=== PATIENT | female | born 1935 | race Caucasian/White ===

== ENCOUNTER 2016-07-17 15:52 | Inpatient (IN) | payer MEDICARE ==
[~2016-07-17] VITALS: Ht 149.9 cm; Wt 45.4 kg
[~2016-07-17 15:52] MED LIST: ALBU1.25 NEB; ASPI81TA2 PO; CHOL400T11 PO; CYAN500T4 PO; Cadexomer Iodine TP; ENOX30DI SQ; Fluconazole PO; Ipratropium Bromide NEB; LACT1CAP72 PO; MERO1VIA IV; RXVAN XX; VANC1VIA GT
[2016-07-17] MEDS ORDERED: IV SET PRIMARY PUMP SET 1 EA INFUS.SET MC ONE ×2 (16:14→19:31)
[2016-07-17] MEDS ORDERED: IV NS 0.9% 1,000 ML ONE (16:14)
[2016-07-17 16:24] LABS: BASOPHILS % (AUTO) 0.5 % (0.0-2.0); DIFF TOTAL % 100 %; EOSINOPHILS # (AUTO) 0.2 /CMM (0.0-0.7); EOSINOPHILS % (AUTO) 2.2 % (0.0-6.0); HEMATOCRIT 35 % (33-45); HEMOGLOBIN 11.2 g/dL (11.5-14.8); LYMPHOCYTES # (AUTO) 1.1 /CMM (0.8-4.8); LYMPHOCYTES % (AUTO) 14.5 % (20.0-44.0); MEAN CORPUSCULAR HEMOGLOBIN 25 PG (26.0-33.0); MEAN CORPUSCULAR HGB CONC 32 g/dl (31.0-36.0); MEAN CORPUSCULAR VOLUME 79 fL (82-100); MONOCYTES # (AUTO) 0.3 /CMM (0.1-1.30); MONOCYTES % (AUTO) 3.9 % (2.0-12.0); NEUTROPHILS # (AUTO) 6.2 /CMM (1.8-8.9); NEUTROPHILS % (AUTO) 78.9 % (43.0-81.0); PLATELET COUNT (AUTO) 415 /CMM (150-450); RED BLOOD CELL COUNT(AUTO) 4.46 MIL/uL (4.0-5.2); WHITE BLOOD COUNT (AUTO) 7.9 K/uL (4.3-11.0)
[2016-07-17] MEDS ORDERED: IV NS 0.9% 1,000 ML BAG IV ONE (16:30)
[2016-07-17 16:36] LABS: CALCIUM, SERUM 9.1 mg/dL (8.5-10.1); CREATININE 0.6 mg/dL (0.6-1.3); POTASSIUM 3.6 mmol/L (3.5-5.1)
[2016-07-17 16:42] LABS: ALBUMIN 2.8 g/dL (3.4-5.0); BILIRUBIN,DIRECT 0.1 mg/dL (0.0-0.2); BILIRUBIN,TOTAL 0.4 mg/dL (0.2-1.0); INDIRECT BILIRUBIN 0.3 mg/dL (0.0-1.1); TOTAL PROTEIN, SERUM 7.1 g/dL (6.4-8.2)
[2016-07-17 16:47] LABS: INR 1.1 (0.87-1.13); PROTHROMBIN TIME 11.5 SECS (9.5-12.7)
[2016-07-17] MEDS ORDERED: AMIN30LI2 PO (17:01)
[2016-07-17] MEDS ORDERED: IPRA0.2S49 NEB (17:01)
[2016-07-17] MEDS ORDERED: ALBU1.257 NEB (17:01)
[2016-07-17] MEDS ORDERED: L.AC460C PO (17:01)
[2016-07-17] MEDS ORDERED: CHOL100062 PO (17:01)
[2016-07-17] MEDS ORDERED: CYAN500T4 PO (17:01)
[2016-07-17 17:13] LABS: ADD UA MICROSCOPIC YES; KETONES,URINE Trace (NEGATIVE); LEUKOCYTE ESTERASE ,URINE Small (NEGATIVE)
[2016-07-17 17:48] LABS: ADD URINE CULTURE YES; WBC,URINE 21-50 /HPF (0-3)
[2016-07-17 19:00] VITALS: BP 147/79
[2016-07-17] MEDS ORDERED: ACETAMINOPHEN 325 MG TABLET PO PRN (19:00)
[2016-07-17] MEDS ORDERED: HYDROCODONE/APAP 5/325MG 1 EACH TABLET PO PRN (19:00)
[2016-07-17] MEDS ORDERED: MAG HYDROX/AL HYDROX/SIMETH 30 ML UDC PO PRN (19:00)
[2016-07-17] MEDS ORDERED: MAGNESIUM HYDROXIDE 30 ML UDC PO PRN (19:00)
[2016-07-17] MEDS ORDERED: ONDANSETRON HCL/PF 4 MG/2 ML VIAL IVP PRN (19:00)
[2016-07-17] MEDS ORDERED: Z GUARD REMEDY 2 OZ OINT TP PRN (19:00)
[2016-07-17] MEDS ORDERED: ZOLPIDEM TARTRATE 5 MG TABLET PO PRN (19:00)
[2016-07-17] MEDS: ALBUTEROL HALF STRENGTH 1.25 MG/3 ML VIAL.NEB NEB SCH (19:30)
[2016-07-17] MEDS ORDERED: SECONDARY IV SET 1 EA INFUS.SET MC ONE (19:31)
[2016-07-17 20:00] VITALS: BP 147/79
[2016-07-17] MEDS: IV NS 0.9% 1,000 ML IV PRN (20:06)
[2016-07-17] MEDS: ACIDOPHILUS/BULGARICUS 1 EACH TAB.CHEW PO SCH ×2 (20:06→20:11)
[2016-07-17] MEDS: ENOXAPARIN SODIUM 30 MG/0.3 ML DISP.SYRIN SQ SCH (20:07)
[2016-07-17] MEDS: CEFTRIAXONE 1 G in IV D5W 50 ML IV SCH (20:27)
[2016-07-18] MEDS: ALBUTEROL HALF STRENGTH 1.25 MG/3 ML VIAL.NEB NEB SCH ×4 (01:30→19:30)
[2016-07-18] MEDS: PANTOPRAZOLE 40 MG TABLET.DR PO SCH (07:30)
[2016-07-18] MEDS: IPRATROPIUM NEB FS 0.5 MG/2.5 ML AMPUL.NEB NEB PRN (07:58)
[2016-07-18 08:00] VITALS: BP 165/94
[2016-07-18] MEDS: CHOLECALCIFEROL 1,000 UNIT TABLET (VIT D3) PO SCH (09:00)
[2016-07-18] MEDS: CYANOCOBALAMIN 500 MCG TABLET PO SCH (09:00)
[2016-07-18] MEDS: PROSOURCE / PROSTAT (PYXIS) 30 ML UDC PO SCH ×3 (09:00→16:25)
[2016-07-18] MEDS: IV NS 0.9% 1,000 ML IV PRN (12:59)
[2016-07-18 15:52] VITALS: BP 134/66
[2016-07-18 16:00] VITALS: BP 134/66
[2016-07-18] MEDS: ACIDOPHILUS/BULGARICUS 1 EACH TAB.CHEW PO SCH (16:25)
[2016-07-18 20:00] VITALS: BP 150/70
[2016-07-18] MEDS: CEFTRIAXONE 1 G in IV D5W 50 ML IV SCH (20:28)
[2016-07-18] MEDS: ENOXAPARIN SODIUM 30 MG/0.3 ML DISP.SYRIN SQ SCH (21:00)
[2016-07-19] MEDS: ALBUTEROL HALF STRENGTH 1.25 MG/3 ML VIAL.NEB NEB SCH ×3 (01:30→19:30)
[2016-07-19] MEDS: PANTOPRAZOLE 40 MG TABLET.DR PO SCH (07:30)
[2016-07-19 08:00] VITALS: BP 179/94
[2016-07-19] MEDS: ACIDOPHILUS/BULGARICUS 1 EACH TAB.CHEW PO SCH ×2 (09:00→17:00)
[2016-07-19] MEDS: CYANOCOBALAMIN 500 MCG TABLET PO SCH (09:00)
[2016-07-19] MEDS: CHOLECALCIFEROL 1,000 UNIT TABLET (VIT D3) PO SCH (09:00)
[2016-07-19] MEDS: PROSOURCE / PROSTAT (PYXIS) 30 ML UDC PO SCH ×3 (09:00→17:00)
[2016-07-19 16:00] VITALS: BP 160/92
[2016-07-19] MEDS ORDERED: IV NS 0.9% 1,000 ML IV PRN (16:44)
[2016-07-19 20:00] VITALS: BP 153/68
[2016-07-19] MEDS: CEFTRIAXONE 1 G in IV D5W 50 ML IV SCH (20:19)
[2016-07-19] MEDS: ENOXAPARIN SODIUM 30 MG/0.3 ML DISP.SYRIN SQ SCH (21:00)
[2016-07-20] MEDS: ALBUTEROL HALF STRENGTH 1.25 MG/3 ML VIAL.NEB NEB SCH ×5 (01:30→20:40)
[2016-07-20] MEDS: PANTOPRAZOLE 40 MG TABLET.DR PO SCH (07:30)
[2016-07-20 08:00] VITALS: BP 148/88
[2016-07-20] MEDS: CHOLECALCIFEROL 1,000 UNIT TABLET (VIT D3) PO SCH (09:00)
[2016-07-20] MEDS: PROSOURCE / PROSTAT (PYXIS) 30 ML UDC PO SCH ×3 (09:00→17:00)
[2016-07-20] MEDS: ACIDOPHILUS/BULGARICUS 1 EACH TAB.CHEW PO SCH ×2 (09:00→17:00)
[2016-07-20] MEDS: CYANOCOBALAMIN 500 MCG TABLET PO SCH (09:00)
[2016-07-20 16:00] VITALS: BP 150/89
[2016-07-20 18:00] VITALS: BP 150/89
[2016-07-20 20:00] VITALS: BP 141/69
[2016-07-20] MEDS: CEFTRIAXONE 1 G in IV D5W 50 ML IV SCH (20:00)
[2016-07-20] MEDS: ENOXAPARIN SODIUM 30 MG/0.3 ML DISP.SYRIN SQ SCH (21:00)
[2016-07-21] MEDS: PANTOPRAZOLE 40 MG TABLET.DR PO SCH (07:30)
[2016-07-21 08:00] VITALS: BP 157/67
[2016-07-21] MEDS: ALBUTEROL HALF STRENGTH 1.25 MG/3 ML VIAL.NEB NEB SCH (08:00)
[2016-07-21] MEDS: IPRATROPIUM NEB FS 0.5 MG/2.5 ML AMPUL.NEB NEB PRN (08:00)
[2016-07-21 08:12] VITALS: BP 157/97
[2016-07-21] MEDS: ACIDOPHILUS/BULGARICUS 1 EACH TAB.CHEW PO SCH (08:53)
[2016-07-21] MEDS: CHOLECALCIFEROL 1,000 UNIT TABLET (VIT D3) PO SCH (08:54)
[2016-07-21] MEDS: CYANOCOBALAMIN 500 MCG TABLET PO SCH (08:54)
[2016-07-21] MEDS: PROSOURCE / PROSTAT (PYXIS) 30 ML UDC PO SCH ×2 (08:54→12:30)
[2016-07-21] MEDS ORDERED: CEFT1FRO2 IV (11:38)
[2016-07-21 13:54] VITALS: BP 157/67
== END 2016-07-21 14:11 | DRG 602 ==
LOC: ER 15:54 → TELE 17:57 → MED 20:47
PROVIDERS: ADMIT Internal Medicine; ATTEND Internal Medicine
DX: L03.115 Cellulitis of right lower limb (principal); E43 Unspecified severe protein-calorie malnutrition; G92 Toxic encephalopathy; N39.0 Urinary tract infection, site not specified; F20.0 Paranoid schizophrenia; L97.919 Non-pressure chronic ulcer of unspecified part of right lower leg with unspecified severity; L97.929 Non-pressure chronic ulcer of unspecified part of left lower leg with unspecified severity; L03.116 Cellulitis of left lower limb; I10 Essential (primary) hypertension; R62.7 Adult failure to thrive; J44.9 Chronic obstructive pulmonary disease, unspecified; F03.90 Unspecified dementia, unspecified severity, without behavioral disturbance, psychotic disturbance, mood disturbance, and anxiety; I87.8 Other specified disorders of veins; L89.152 Pressure ulcer of sacral region, stage 2; K21.9 Gastro-esophageal reflux disease without esophagitis; F32.9 Major depressive disorder, single episode, unspecified; E88.09 Other disorders of plasma-protein metabolism, not elsewhere classified; M62.50 Muscle wasting and atrophy, not elsewhere classified, unspecified site; D63.8 Anemia in other chronic diseases classified elsewhere; E53.8 Deficiency of other specified B group vitamins; I35.0 Nonrheumatic aortic (valve) stenosis; I27.2 Other secondary pulmonary hypertension; C44.91 Basal cell carcinoma of skin, unspecified; I83.029 Varicose veins of left lower extremity with ulcer of unspecified site; I83.019 Varicose veins of right lower extremity with ulcer of unspecified site
CPT/HCPCS: 36415; 80048-TC; 80076-TC; 81000-TC; 83605-TC; 83690-TC; 85025-TC; 85730-TC; 87040-TC; 87081-TC; 87086-TC; 92521; 94799-TC; 97001-TC; 97003-TC; 97110-TC; 97116-TC; 97530-TC; A4606; A6253; A6403; J0696; J1650; J7030; J7060; Z7610

== ENCOUNTER 2016-07-23 20:19 | Inpatient (IN) | payer MEDICARE, OTHER ==
[~2016-07-23] VITALS: Ht 144.8 cm; Wt 54.0 kg
[~2016-07-23 20:19] MED LIST changes: -ALBU1.25 NEB; +ALBU1.257 NEB; +AMIN30LI2 PO; -ASPI81TA2 PO; +CEFT1FRO2 IV; +CHOL100062 PO; -CHOL400T11 PO; -Cadexomer Iodine TP; -ENOX30DI SQ; -Fluconazole PO; +IPRA0.2S49 NEB; -Ipratropium Bromide NEB; +L.AC460C PO; -LACT1CAP72 PO; -MERO1VIA IV; -RXVAN XX; -VANC1VIA GT
[2016-07-23 20:46] LABS: BASOPHILS # (AUTO) 0.2 /CMM (0.0-0.2); BASOPHILS % (AUTO) 2.8 % (0.0-2.0); DIFF TOTAL % 100 %; EOSINOPHILS # (AUTO) 0.2 /CMM (0.0-0.7); EOSINOPHILS % (AUTO) 2.8 % (0.0-6.0); HEMATOCRIT 30 % (33-45); HEMOGLOBIN 10.1 g/dL (11.5-14.8); LYMPHOCYTES % (AUTO) 12.1 % (20.0-44.0); MEAN CORPUSCULAR HEMOGLOBIN 26 PG (26.0-33.0); MEAN CORPUSCULAR HGB CONC 33 g/dl (31.0-36.0); MEAN CORPUSCULAR VOLUME 79 fL (82-100); MONOCYTES # (AUTO) 0.4 /CMM (0.1-1.30); MONOCYTES % (AUTO) 4.5 % (2.0-12.0); NEUTROPHILS # (AUTO) 6.3 /CMM (1.8-8.9); NEUTROPHILS % (AUTO) 77.8 % (43.0-81.0); PLATELET COUNT (AUTO) 480 /CMM (150-450); RED BLOOD CELL COUNT(AUTO) 3.83 MIL/uL (4.0-5.2); WHITE BLOOD COUNT (AUTO) 8.1 K/uL (4.3-11.0)
[2016-07-23 20:57] LABS: ANION GAP 10 (5-14); CALCIUM, SERUM 8.7 mg/dL (8.5-10.1); CARBON DIOXIDE 32 mmol/L (21-32); CHLORIDE 104 mmol/L (98-107); CREATININE 0.7 mg/dL (0.6-1.3); GLUCOSE 89 mg/dL (74-106); POTASSIUM 3.9 mmol/L (3.5-5.1); SODIUM SERUM 142 mmol/L (136-145); UREA NITROGEN, BLOOD 20 mg/dL (7-18)
[2016-07-23 21:05] LABS: ALANINE AMINOTRANSFERASE 10 U/L (12-78); ALBUMIN 2.8 g/dL (3.4-5.0); ASPARTATE AMINOTRANSFERASE 13 U/L (15-37); BILIRUBIN,DIRECT 0.1 mg/dL (0.0-0.2); BILIRUBIN,TOTAL 0.2 mg/dL (0.2-1.0); INDIRECT BILIRUBIN 0.1 mg/dL (0.0-1.1); TOTAL PROTEIN, SERUM 6.8 g/dL (6.4-8.2)
[2016-07-23 21:11] LABS: KETONES,URINE Trace (NEGATIVE); LEUKOCYTE ESTERASE ,URINE Trace (NEGATIVE)
[2016-07-23 21:20] LABS: ADD UA MICROSCOPIC YES
[2016-07-23 21:22] LABS: CANNABINOID, URINE NEGATIVE (NEGATIVE); PHENCYCLIDINE SCREEN,URINE NEGATIVE (NEGATIVE)
[2016-07-23 21:25] LABS: ACETAMINOPHEN 0 ug/ml (10-30); SALICYLATE 1.5 mg/dL (2.8-20.0)
[2016-07-23 21:38] LABS: ADD URINE CULTURE YES; MUCUS,URINE Few /LPF (None Seen); RBC,URINE 2-4/HPF /HPF (0-2)
[2016-07-23] MEDS ORDERED: ASPI-605 PO (21:43)
[2016-07-23] MEDS ORDERED: ASCO500T9 PO (21:43)
[2016-07-23] MEDS ORDERED: TYL2T PO (21:45)
[2016-07-23] MEDS ORDERED: MULT1TAB11 PO (21:45)
[2016-07-24] MEDS ORDERED: TEMAZEPAM 7.5 MG CAPSULE PO PRN
[2016-07-24] MEDS ORDERED: MAGNESIUM HYDROXIDE 30 ML UDC PO PRN
[2016-07-24] MEDS ORDERED: MAG HYDROX/AL HYDROX/SIMETH 30 ML UDC PO PRN
[2016-07-24] MEDS ORDERED: clonazePAM 0.5 MG TABLET PO PRN
[2016-07-24] MEDS ORDERED: ACETAMINOPHEN 325 MG TABLET PO PRN
[2016-07-24 01:00] VITALS: BP 146/89
[2016-07-24 08:00] VITALS: BP 146/94
[2016-07-24] MEDS ORDERED: ASPIRIN EC 81 MG TABLET.DR PO SCH (09:00)
[2016-07-24] MEDS: ASCORBIC ACID 500 MG TABLET PO SCH ×2 (09:00→09:24)
[2016-07-24] MEDS: CIPROFLOXACIN HCL 250 MG TABLET PO SCH ×3 (09:24→22:20)
[2016-07-24] MEDS ORDERED: Z GUARD REMEDY 2 OZ OINT TP PRN (11:30)
[2016-07-24] MEDS: Z GUARD REMEDY 2 OZ OINT TP SCH ×2 (13:31→17:44)
[2016-07-24] MEDS: HYDROGEL DRESSING 90 GM TUBE TP SCH (14:19)
[2016-07-24] MEDS: UREA 10% -AHA 4% CREAM 57 GM TUBE TP SCH ×3 (14:19→22:22)
[2016-07-24 16:00] VITALS: BP 143/85
[2016-07-24] MEDS: QUETIAPINE FUMARATE 25 MG TABLET PO SCH ×2 (17:00→17:44)
[2016-07-24 20:05] VITALS: BP 138/90
[2016-07-24] MEDS: MIRTAZAPINE 15 MG TABLET PO SCH ×2 (22:00→22:20)
[2016-07-25] MEDS: Z GUARD REMEDY 2 OZ OINT TP SCH ×2 (05:58→18:23)
[2016-07-25 08:00] VITALS: BP 144/74
[2016-07-25] MEDS: CIPROFLOXACIN HCL 250 MG TABLET PO SCH ×2 (09:00→21:00)
[2016-07-25] MEDS: QUETIAPINE FUMARATE 25 MG TABLET PO SCH ×2 (09:00→17:00)
[2016-07-25] MEDS: ASCORBIC ACID 500 MG TABLET PO SCH (09:00)
[2016-07-25] MEDS: UREA 10% -AHA 4% CREAM 57 GM TUBE TP SCH ×2 (11:56→21:35)
[2016-07-25] MEDS: HYDROGEL DRESSING 90 GM TUBE TP SCH (11:56)
[2016-07-25 16:04] VITALS: BP 142/76
[2016-07-25 20:05] VITALS: BP 125/69
[2016-07-25] MEDS: MIRTAZAPINE 15 MG TABLET PO SCH (21:35)
[2016-07-26] MEDS: Z GUARD REMEDY 2 OZ OINT TP SCH ×2 (05:47→17:52)
[2016-07-26 08:57] VITALS: BP 145/89
[2016-07-26] MEDS: QUETIAPINE FUMARATE 25 MG TABLET PO SCH ×2 (09:00→17:00)
[2016-07-26] MEDS: CIPROFLOXACIN HCL 250 MG TABLET PO SCH ×2 (09:00→20:45)
[2016-07-26] MEDS: ASCORBIC ACID 500 MG TABLET PO SCH (09:00)
[2016-07-26] MEDS: UREA 10% -AHA 4% CREAM 57 GM TUBE TP SCH ×2 (15:26→20:50)
[2016-07-26] MEDS: HYDROGEL DRESSING 90 GM TUBE TP SCH (15:27)
[2016-07-26 16:00] VITALS: BP 134/66
[2016-07-26 20:00] VITALS: BP 146/89
[2016-07-26] MEDS: MIRTAZAPINE 15 MG TABLET PO SCH (21:00)
[2016-07-27] MEDS: Z GUARD REMEDY 2 OZ OINT TP SCH ×2 (06:02→17:02)
[2016-07-27 08:00] VITALS: BP 121/85
[2016-07-27] MEDS: QUETIAPINE FUMARATE 25 MG TABLET PO SCH ×2 (08:55→16:47)
[2016-07-27] MEDS: ASCORBIC ACID 500 MG TABLET PO SCH (08:55)
[2016-07-27] MEDS: CIPROFLOXACIN HCL 250 MG TABLET PO SCH ×2 (08:55→21:00)
[2016-07-27] MEDS: UREA 10% -AHA 4% CREAM 57 GM TUBE TP SCH ×2 (08:55→21:00)
[2016-07-27] MEDS: HYDROGEL DRESSING 90 GM TUBE TP SCH (08:56)
[2016-07-27 16:00] VITALS: BP 147/79
[2016-07-27 20:00] VITALS: BP 139/80
[2016-07-27] MEDS: MIRTAZAPINE 15 MG TABLET PO SCH (21:31)
[2016-07-28] MEDS: Z GUARD REMEDY 2 OZ OINT TP SCH ×2 (06:00→17:11)
[2016-07-28 08:00] VITALS: BP 142/87
[2016-07-28] MEDS: CIPROFLOXACIN HCL 250 MG TABLET PO SCH ×2 (08:33→21:00)
[2016-07-28] MEDS: QUETIAPINE FUMARATE 25 MG TABLET PO SCH ×2 (08:34→16:58)
[2016-07-28] MEDS: ASCORBIC ACID 500 MG TABLET PO SCH (08:35)
[2016-07-28] MEDS: UREA 10% -AHA 4% CREAM 57 GM TUBE TP SCH ×2 (08:35→21:00)
[2016-07-28] MEDS: HYDROGEL DRESSING 90 GM TUBE TP SCH (08:35)
[2016-07-28 16:07] VITALS: BP 130/89
[2016-07-28 20:00] VITALS: BP 134/90
[2016-07-28] MEDS: MIRTAZAPINE 15 MG TABLET PO SCH (22:00)
[2016-07-29] MEDS: Z GUARD REMEDY 2 OZ OINT TP SCH ×2 (06:09→18:15)
[2016-07-29 08:00] VITALS: BP 146/98
[2016-07-29] MEDS: ASCORBIC ACID 500 MG TABLET PO SCH (08:27)
[2016-07-29] MEDS: CIPROFLOXACIN HCL 250 MG TABLET PO SCH ×2 (08:27→21:00)
[2016-07-29] MEDS: QUETIAPINE FUMARATE 25 MG TABLET PO SCH ×2 (08:27→17:00)
[2016-07-29] MEDS: HYDROGEL DRESSING 90 GM TUBE TP SCH (09:00)
[2016-07-29] MEDS: UREA 10% -AHA 4% CREAM 57 GM TUBE TP SCH ×2 (09:00→21:59)
[2016-07-29 16:00] VITALS: BP 139/72
[2016-07-29 19:57] VITALS: BP 152/108
[2016-07-29] MEDS ORDERED: VALSARTAN 80 MG TABLET ONE (19:58)
[2016-07-29] MEDS ORDERED: VALSARTAN 80 MG TABLET PO ONE (20:00)
[2016-07-29 20:25] VITALS: BP 117/75
[2016-07-29] MEDS: MIRTAZAPINE 15 MG TABLET PO SCH (21:58)
[2016-07-30] MEDS: Z GUARD REMEDY 2 OZ OINT TP SCH ×2 (06:00→18:12)
[2016-07-30 08:00] VITALS: BP 126/73
[2016-07-30] MEDS: VALSARTAN 80 MG TABLET PO SCH (09:00)
[2016-07-30] MEDS: ASCORBIC ACID 500 MG TABLET PO SCH (09:00)
[2016-07-30] MEDS: HYDROGEL DRESSING 90 GM TUBE TP SCH (09:00)
[2016-07-30] MEDS: UREA 10% -AHA 4% CREAM 57 GM TUBE TP SCH ×2 (09:00→21:00)
[2016-07-30] MEDS: QUETIAPINE FUMARATE 25 MG TABLET PO SCH ×2 (09:00→17:00)
[2016-07-30] MEDS: CIPROFLOXACIN HCL 250 MG TABLET PO SCH ×2 (09:00→21:00)
[2016-07-30] MEDS ORDERED: HALOPERIDOL LACTATE INJ 5 MG/ML VIAL IM SCH (14:30)
[2016-07-30 16:00] VITALS: BP 108/51
[2016-07-30] MEDS: HALOPERIDOL LACTATE INJ 5 MG/ML VIAL IM SCH (18:09)
[2016-07-30 20:25] VITALS: BP 112/51
[2016-07-30] MEDS: MIRTAZAPINE 15 MG TABLET PO SCH (21:52)
[2016-07-31] MEDS: Z GUARD REMEDY 2 OZ OINT TP SCH ×2 (06:27→18:00)
[2016-07-31 08:00] VITALS: BP 117/61
[2016-07-31] MEDS: ASCORBIC ACID 500 MG TABLET PO SCH ×2 (09:00→10:04)
[2016-07-31] MEDS: CIPROFLOXACIN HCL 250 MG TABLET PO SCH ×3 (09:00→21:00)
[2016-07-31] MEDS: QUETIAPINE FUMARATE 25 MG TABLET PO SCH ×4 (09:00→17:44)
[2016-07-31] MEDS: UREA 10% -AHA 4% CREAM 57 GM TUBE TP SCH ×3 (09:00→21:36)
[2016-07-31] MEDS: VALSARTAN 80 MG TABLET PO SCH (09:00)
[2016-07-31] MEDS ORDERED: HALOPERIDOL LACTATE INJ 5 MG/ML VIAL IM SCH (09:00)
[2016-07-31] MEDS: HYDROGEL DRESSING 90 GM TUBE TP SCH (10:08)
[2016-07-31] MEDS: HALOPERIDOL LACTATE INJ 5 MG/ML VIAL IM SCH ×2 (10:27→17:57)
[2016-07-31 16:00] VITALS: BP 125/66
[2016-07-31 19:50] VITALS: BP 129/51
[2016-07-31] MEDS: MIRTAZAPINE 15 MG TABLET PO SCH (21:36)
[2016-08-01 02:59] LABS: BASOPHILS % (AUTO) 0.1 % (0.0-2.0); DIFF TOTAL % 100 %; HEMATOCRIT 27 % (33-45); LYMPHOCYTES # (AUTO) 0.3 /CMM (0.8-4.8); LYMPHOCYTES % (AUTO) 2.3 % (20.0-44.0); MEAN CORPUSCULAR HEMOGLOBIN 26 PG (26.0-33.0); MEAN CORPUSCULAR HGB CONC 33 g/dl (31.0-36.0); MEAN CORPUSCULAR VOLUME 77 fL (82-100); MONOCYTES # (AUTO) 0.7 /CMM (0.1-1.30); MONOCYTES % (AUTO) 4.9 % (2.0-12.0); NEUTROPHILS % (AUTO) 92.7 % (43.0-81.0); PLATELET COUNT (AUTO) 278 /CMM (150-450)
[2016-08-01 03:08] LABS: CALCIUM, SERUM 8.2 mg/dL (8.5-10.1); PHOSPHORUS 2.6 mg/dL (2.5-4.9); POTASSIUM 3.6 mmol/L (3.5-5.1)
[2016-08-01 03:22] LABS: TROPONIN I 0.037 ng/mL (0.00-0.056)
== END 2016-08-01 03:03 | disposition short-term general hospital (02) | DRG 885 ==
LOC: ER 20:24 → GPS 23:10
PROVIDERS: ADMIT Psychiatry & Neurology Psychiatry; ATTEND Internal Medicine
DX: F33.3 Major depressive disorder, recurrent, severe with psychotic symptoms (principal); G93.41 Metabolic encephalopathy; E44.0 Moderate protein-calorie malnutrition; L03.115 Cellulitis of right lower limb; L03.116 Cellulitis of left lower limb; N39.0 Urinary tract infection, site not specified; F03.90 Unspecified dementia, unspecified severity, without behavioral disturbance, psychotic disturbance, mood disturbance, and anxiety; D63.8 Anemia in other chronic diseases classified elsewhere; E78.5 Hyperlipidemia, unspecified; I25.10 Atherosclerotic heart disease of native coronary artery without angina pectoris; K21.9 Gastro-esophageal reflux disease without esophagitis; D50.9 Iron deficiency anemia, unspecified; Z73.6 Limitation of activities due to disability; J44.9 Chronic obstructive pulmonary disease, unspecified; R74.0 Nonspecific elevation of levels of transaminase and lactic acid dehydrogenase [LDH]; L89.150 Pressure ulcer of sacral region, unstageable; I83.019 Varicose veins of right lower extremity with ulcer of unspecified site; I83.029 Varicose veins of left lower extremity with ulcer of unspecified site; C44.119 Basal cell carcinoma of skin of left eyelid, including canthus; I10 Essential (primary) hypertension; I87.2 Venous insufficiency (chronic) (peripheral); Z68.25 Body mass index [BMI] 25.0-25.9, adult
CPT/HCPCS: 36415; 80048-TC; 80076-TC; 80305; 81000-TC; 83735-TC; 83880; 84100-TC; 84484-TC; 85025-TC; 87086-TC; 97001-TC; 97116-TC; 97530-TC; A4606; A6248; A6253; A6402; G0480; G6039-TC; J1630; Z7610

== ENCOUNTER 2016-08-01 03:03 | Inpatient (IN) | payer MEDICARE ==
[~2016-08-01] VITALS: Ht 144.8 cm; Wt 42.6 kg
[~2016-08-01 03:03] MED LIST changes: +ASCO500T9 PO; +ASPI-605 PO; +MULT1TAB11 PO; +TYL2T PO
[2016-08-01 03:11] VITALS: BP 123/68
[2016-08-01] MEDS ORDERED: Z GUARD REMEDY 2 OZ OINT TP PRN (03:30)
[2016-08-01] MEDS ORDERED: MAG HYDROX/AL HYDROX/SIMETH 30 ML UDC PO PRN (03:30)
[2016-08-01] MEDS ORDERED: ONDANSETRON HCL/PF 4 MG/2 ML VIAL IVP PRN (03:30)
[2016-08-01] MEDS ORDERED: DILTIAZEM HCL 50 MG IV IV ONE (03:30)
[2016-08-01] MEDS ORDERED: MAGNESIUM HYDROXIDE 30 ML UDC PO PRN (03:30)
[2016-08-01] MEDS ORDERED: DILTIAZEM HCL 25 MG IV ONE ×2 (03:35→04:15)
[2016-08-01] MEDS ORDERED: ACETAMINOPHEN 325 MG TABLET ONE (03:53)
[2016-08-01 04:00] VITALS: BP 123/67
[2016-08-01] MEDS ORDERED: ACETAMINOPHEN 650 MG/SUPP.RECT RC ONE (04:07)
[2016-08-01] MEDS: ACETAMINOPHEN 650 MG/SUPP.RECT RC PRN (04:11)
[2016-08-01] MEDS ORDERED: IV SET PRIMARY PUMP SET 1 EA INFUS.SET MC ONE ×3 (04:14→09:03)
[2016-08-01] MEDS ORDERED: IV D5W 100 ML IV ONE (04:15)
[2016-08-01] MEDS ORDERED: DILTIAZEM HCL 50 MG IV ONE (04:15)
[2016-08-01] MEDS: DILTIAZEM HCL IV 125 MG in IV D5W 100 ML IV PRN ×2 (04:33→17:31)
[2016-08-01 08:00] VITALS: BP 105/54
[2016-08-01] MEDS ORDERED: Magnesium 1GM/D5W 100ML PREMIX 100 ML IV SCH (08:00)
[2016-08-01 08:36] LABS: KETONES,URINE NEGATIVE (NEGATIVE); LEUKOCYTE ESTERASE ,URINE 3+ (NEGATIVE)
[2016-08-01 08:40] LABS: ADD UA MICROSCOPIC YES
[2016-08-01 08:44] LABS: ADD URINE CULTURE YES; WBC,URINE TOO NUMEROUS TO COUN /HPF (0-3)
[2016-08-01] MEDS: CEFTRIAXONE 1 G in IV D5W 50 ML IV SCH (08:50)
[2016-08-01] MEDS: PANTOPRAZOLE 40 MG TABLET.DR PO SCH (08:51)
[2016-08-01] MEDS: HEPARIN SODIUM, PORCINE 5000 UNITS/1 ML VIAL SQ SCH ×2 (08:59→21:13)
[2016-08-01] MEDS ORDERED: DILTIAZEM HCL 30 MG TABLET PO SCH (09:00)
[2016-08-01] MEDS ORDERED: clonazePAM 0.5 MG TABLET PO PRN (10:30)
[2016-08-01] MEDS ORDERED: ACETAMINOPHEN 325 MG TABLET PO PRN (10:30)
[2016-08-01] MEDS: Z GUARD REMEDY 2 OZ OINT TP SCH ×2 (11:25→22:19)
[2016-08-01 12:00] VITALS: BP 132/72
[2016-08-01 16:00] VITALS: BP 115/50
[2016-08-01] MEDS: QUETIAPINE FUMARATE 25 MG TABLET PO SCH (17:00)
[2016-08-01] MEDS: METOPROLOL TARTRATE 50 MG TABLET PO SCH ×2 (17:32→23:46)
[2016-08-01 20:00] VITALS: BP 117/52
[2016-08-01] MEDS ORDERED: TEMAZEPAM 7.5 MG CAPSULE PO PRN (22:00)
[2016-08-01] MEDS: MIRTAZAPINE 15 MG TABLET PO SCH (22:19)
[2016-08-01] MEDS: ACETAMINOPHEN 325 MG TABLET PO PRN (23:46)
[2016-08-02] VITALS: BP 140/72
[2016-08-02] MEDS ORDERED: DILTIAZEM HCL 25 MG IV ONE (02:47)
[2016-08-02] MEDS ORDERED: IV D5W 100 ML IV ONE (02:47)
[2016-08-02] MEDS ORDERED: DILTIAZEM HCL 50 MG IV ONE (02:55)
[2016-08-02] MEDS: DILTIAZEM HCL IV 125 MG in IV D5W 100 ML IV PRN ×2 (03:21→18:27)
[2016-08-02 04:00] VITALS: BP 99/54
[2016-08-02] MEDS: METOPROLOL TARTRATE 50 MG TABLET PO SCH ×4 (06:14→23:15)
[2016-08-02 06:24] LABS: BASOPHILS % (AUTO) 0.3 % (0.0-2.0); DIFF TOTAL % 100 %; EOSINOPHILS % (AUTO) 0.1 % (0.0-6.0); HEMATOCRIT 25 % (33-45); HEMOGLOBIN 8.2 g/dL (11.5-14.8); LYMPHOCYTES # (AUTO) 0.8 /CMM (0.8-4.8); LYMPHOCYTES % (AUTO) 7.4 % (20.0-44.0); MEAN CORPUSCULAR HEMOGLOBIN 26 PG (26.0-33.0); MEAN CORPUSCULAR HGB CONC 33 g/dl (31.0-36.0); MEAN CORPUSCULAR VOLUME 78 fL (82-100); MONOCYTES # (AUTO) 0.9 /CMM (0.1-1.30); MONOCYTES % (AUTO) 7.8 % (2.0-12.0); NEUTROPHILS # (AUTO) 9.3 /CMM (1.8-8.9); NEUTROPHILS % (AUTO) 84.4 % (43.0-81.0); PLATELET COUNT (AUTO) 224 /CMM (150-450); RED BLOOD CELL COUNT(AUTO) 3.22 MIL/uL (4.0-5.2)
[2016-08-02 07:03] LABS: CALCIUM, SERUM 8.3 mg/dL (8.5-10.1); POTASSIUM 3.7 mmol/L (3.5-5.1)
[2016-08-02] MEDS: PANTOPRAZOLE 40 MG TABLET.DR PO SCH (07:30)
[2016-08-02 08:00] VITALS: BP 106/54
[2016-08-02] MEDS: ASPIRIN 81 MG TAB.CHEW PO SCH (09:00)
[2016-08-02] MEDS: QUETIAPINE FUMARATE 25 MG TABLET PO SCH (09:00)
[2016-08-02] MEDS: HEPARIN SODIUM, PORCINE 5000 UNITS/1 ML VIAL SQ SCH ×2 (09:00→20:26)
[2016-08-02] MEDS: CEFTRIAXONE 1 G in IV D5W 50 ML IV SCH (09:01)
[2016-08-02] MEDS: Z GUARD REMEDY 2 OZ OINT TP SCH ×3 (10:30→21:35)
[2016-08-02 12:00] VITALS: BP 112/47
[2016-08-02] MEDS ORDERED: Z GUARD REMEDY 2 OZ OINT TP PRN (12:00)
[2016-08-02 16:00] VITALS: BP 125/65
[2016-08-02 20:00] VITALS: BP 118/62
[2016-08-02] MEDS: MIRTAZAPINE 15 MG TABLET PO SCH (21:13)
[2016-08-02] MEDS: OLANZAPINE 10 MG VIAL IM SCH (21:34)
[2016-08-02] MEDS ORDERED: QUETIAPINE FUMARATE 25 MG TABLET PO SCH (22:00)
[2016-08-03] VITALS (8 sets, daily range): BP systolic 116–144; BP diastolic 58–72
[2016-08-03] MEDS: METOPROLOL TARTRATE 50 MG TABLET PO SCH ×4 (05:08→23:43)
[2016-08-03] MEDS: PANTOPRAZOLE 40 MG TABLET.DR PO SCH (05:09)
[2016-08-03 07:45] LABS: BASOPHILS # (AUTO) 0.1 /CMM (0.0-0.2); BASOPHILS % (AUTO) 0.7 % (0.0-2.0); DIFF TOTAL % 100 %; EOSINOPHILS % (AUTO) 0.5 % (0.0-6.0); HEMATOCRIT 28 % (33-45); HEMOGLOBIN 9.1 g/dL (11.5-14.8); LYMPHOCYTES # (AUTO) 0.7 /CMM (0.8-4.8); LYMPHOCYTES % (AUTO) 8.8 % (20.0-44.0); MEAN CORPUSCULAR HEMOGLOBIN 26 PG (26.0-33.0); MEAN CORPUSCULAR HGB CONC 33 g/dl (31.0-36.0); MEAN CORPUSCULAR VOLUME 78 fL (82-100); MONOCYTES # (AUTO) 0.6 /CMM (0.1-1.30); MONOCYTES % (AUTO) 7.1 % (2.0-12.0); NEUTROPHILS # (AUTO) 6.4 /CMM (1.8-8.9); NEUTROPHILS % (AUTO) 82.9 % (43.0-81.0); PLATELET COUNT (AUTO) 257 /CMM (150-450); RED BLOOD CELL COUNT(AUTO) 3.55 MIL/uL (4.0-5.2); WHITE BLOOD COUNT (AUTO) 7.7 K/uL (4.3-11.0)
[2016-08-03] MEDS: ASPIRIN 81 MG TAB.CHEW PO SCH ×2 (08:01→15:59)
[2016-08-03 08:06] LABS: CALCIUM, SERUM 8.2 mg/dL (8.5-10.1); CREATININE 0.9 mg/dL (0.6-1.3); POTASSIUM 3.4 mmol/L (3.5-5.1)
[2016-08-03] MEDS: DILTIAZEM HCL IV 125 MG in IV D5W 100 ML IV PRN (08:44)
[2016-08-03] MEDS: HEPARIN SODIUM, PORCINE 5000 UNITS/1 ML VIAL SQ SCH ×2 (09:00→20:20)
[2016-08-03] MEDS ORDERED: SECONDARY IV SET 1 EA INFUS.SET MC ONE (09:16)
[2016-08-03] MEDS ORDERED: IV SET PRIMARY PUMP SET 1 EA INFUS.SET MC ONE ×2 (09:19→11:50)
[2016-08-03] MEDS: CEFTRIAXONE 1 G in IV D5W 50 ML IV SCH (09:23)
[2016-08-03] MEDS: Z GUARD REMEDY 2 OZ OINT TP SCH ×4 (09:23→21:46)
[2016-08-03] MEDS: POTASSIUM CL. PREMIX PERIPHER. 50 ML IV SCH ×2 (12:01→14:42)
[2016-08-03] MEDS ORDERED: METOPROLOL TARTRATE INJ 5 MG/5 ML AMPUL IVP PRN (15:30)
[2016-08-03] MEDS: ACETAMINOPHEN 650 MG/SUPP.RECT RC PRN (20:21)
[2016-08-03] MEDS ORDERED: MEROPENEM 500 MG in IV NS 0.9% 50 ML IV SCH (21:00)
[2016-08-03] MEDS: MEROPENEM 1 G in IV NS 0.9% 100 ML IV SCH (21:01)
[2016-08-03] MEDS: MIRTAZAPINE 15 MG TABLET PO SCH (21:09)
[2016-08-03] MEDS: QUETIAPINE FUMARATE 100 MG TABLET PO SCH (21:09)
[2016-08-03] MEDS: OLANZAPINE 10 MG VIAL IM SCH (21:46)
[2016-08-04] VITALS: BP 99/49
[2016-08-04 04:00] VITALS: BP 110/64
[2016-08-04] MEDS: METOPROLOL TARTRATE 50 MG TABLET PO SCH ×4 (06:00→23:42)
[2016-08-04 06:47] LABS: BASOPHILS % (AUTO) 0.2 % (0.0-2.0); DIFF TOTAL % 100 %; EOSINOPHILS % (AUTO) 0.1 % (0.0-6.0); HEMATOCRIT 26 % (33-45); HEMOGLOBIN 8.5 g/dL (11.5-14.8); LYMPHOCYTES # (AUTO) 0.6 /CMM (0.8-4.8); LYMPHOCYTES % (AUTO) 5.7 % (20.0-44.0); MEAN CORPUSCULAR HEMOGLOBIN 26 PG (26.0-33.0); MEAN CORPUSCULAR HGB CONC 33 g/dl (31.0-36.0); MEAN CORPUSCULAR VOLUME 78 fL (82-100); MONOCYTES # (AUTO) 0.6 /CMM (0.1-1.30); MONOCYTES % (AUTO) 5.3 % (2.0-12.0); NEUTROPHILS # (AUTO) 9.8 /CMM (1.8-8.9); NEUTROPHILS % (AUTO) 88.7 % (43.0-81.0); PLATELET COUNT (AUTO) 248 /CMM (150-450); RED BLOOD CELL COUNT(AUTO) 3.35 MIL/uL (4.0-5.2); WHITE BLOOD COUNT (AUTO) 11.1 K/uL (4.3-11.0)
[2016-08-04 07:16] LABS: CALCIUM, SERUM 8.2 mg/dL (8.5-10.1); POTASSIUM 3.7 mmol/L (3.5-5.1)
[2016-08-04 08:00] VITALS: BP 96/50
[2016-08-04] MEDS: MEROPENEM 1 G in IV NS 0.9% 100 ML IV SCH ×2 (08:40→20:20)
[2016-08-04] MEDS: ASPIRIN 81 MG TAB.CHEW PO SCH (08:41)
[2016-08-04] MEDS: HEPARIN SODIUM, PORCINE 5000 UNITS/1 ML VIAL SQ SCH ×2 (08:41→20:22)
[2016-08-04] MEDS: PANTOPRAZOLE 40 MG TABLET.DR PO SCH (08:41)
[2016-08-04] MEDS: Z GUARD REMEDY 2 OZ OINT TP SCH ×2 (08:42→22:15)
[2016-08-04 12:00] VITALS: BP 98/50
[2016-08-04 16:00] VITALS: BP 100/50
[2016-08-04 20:00] VITALS: BP 94/46
[2016-08-04] MEDS: OLANZAPINE 10 MG VIAL IM SCH (21:12)
[2016-08-04] MEDS: QUETIAPINE FUMARATE 100 MG TABLET PO SCH (21:13)
[2016-08-04] MEDS: MIRTAZAPINE 15 MG TABLET PO SCH (21:13)
[2016-08-05] VITALS: BP 109/58
[2016-08-05 04:00] VITALS: BP 103/56
[2016-08-05] MEDS: METOPROLOL TARTRATE 50 MG TABLET PO SCH ×3 (05:16→17:07)
[2016-08-05] MEDS: ACETAMINOPHEN 325 MG TABLET PO PRN (06:32)
[2016-08-05 07:07] LABS: BASOPHILS # (AUTO) 0.1 /CMM (0.0-0.2); BASOPHILS % (AUTO) 0.8 % (0.0-2.0); DIFF TOTAL % 100 %; EOSINOPHILS # (AUTO) 0.1 /CMM (0.0-0.7); EOSINOPHILS % (AUTO) 0.8 % (0.0-6.0); HEMATOCRIT 26 % (33-45); HEMOGLOBIN 8.3 g/dL (11.5-14.8); LYMPHOCYTES # (AUTO) 0.8 /CMM (0.8-4.8); LYMPHOCYTES % (AUTO) 11.6 % (20.0-44.0); MEAN CORPUSCULAR HEMOGLOBIN 25 PG (26.0-33.0); MEAN CORPUSCULAR HGB CONC 32 g/dl (31.0-36.0); MEAN CORPUSCULAR VOLUME 78 fL (82-100); MONOCYTES # (AUTO) 0.6 /CMM (0.1-1.30); MONOCYTES % (AUTO) 8.5 % (2.0-12.0); NEUTROPHILS # (AUTO) 5.7 /CMM (1.8-8.9); NEUTROPHILS % (AUTO) 78.3 % (43.0-81.0); PLATELET COUNT (AUTO) 311 /CMM (150-450); RED BLOOD CELL COUNT(AUTO) 3.35 MIL/uL (4.0-5.2); WHITE BLOOD COUNT (AUTO) 7.3 K/uL (4.3-11.0)
[2016-08-05 07:29] LABS: CALCIUM, SERUM 8.4 mg/dL (8.5-10.1); POTASSIUM 3.7 mmol/L (3.5-5.1)
[2016-08-05] MEDS: PANTOPRAZOLE 40 MG TABLET.DR PO SCH (07:30)
[2016-08-05 08:00] VITALS: BP 133/60
[2016-08-05] MEDS: HEPARIN SODIUM, PORCINE 5000 UNITS/1 ML VIAL SQ SCH ×2 (08:42→22:41)
[2016-08-05] MEDS: ASPIRIN 81 MG TAB.CHEW PO SCH (08:42)
[2016-08-05] MEDS: MEROPENEM 1 G in IV NS 0.9% 100 ML IV SCH (09:00)
[2016-08-05] MEDS: Z GUARD REMEDY 2 OZ OINT TP SCH ×2 (10:03→22:42)
[2016-08-05] MEDS: QUETIAPINE FUMARATE 25 MG TABLET PO SCH ×2 (10:33→17:07)
[2016-08-05 12:00] VITALS: BP 118/71
[2016-08-05 16:00] VITALS: BP 103/56
[2016-08-05] MEDS ORDERED: LEVOFLOXACIN (500MG) 500 MG TABLET PO SCH (16:30)
[2016-08-05] MEDS ORDERED: LEVOFLOXACIN (500MG) 500 MG TABLET PO ONE (17:00)
[2016-08-05 20:00] VITALS: BP 98/53
[2016-08-05] MEDS ORDERED: OLANZAPINE 10 MG VIAL IM PRN (22:00)
[2016-08-05] MEDS: MIRTAZAPINE 15 MG TABLET PO SCH (22:39)
[2016-08-05] MEDS: QUETIAPINE FUMARATE 100 MG TABLET PO SCH (22:39)
[2016-08-06] VITALS (10 sets, daily range): BP systolic 94–129; BP diastolic 49–68
[2016-08-06] MEDS: METOPROLOL TARTRATE 50 MG TABLET PO SCH ×4 (05:24→18:13)
[2016-08-06] MEDS: ACETAMINOPHEN 325 MG TABLET PO PRN (08:44)
[2016-08-06] MEDS: ASPIRIN 81 MG TAB.CHEW PO SCH ×2 (08:44→09:00)
[2016-08-06] MEDS: PANTOPRAZOLE 40 MG TABLET.DR PO SCH (08:44)
[2016-08-06] MEDS: QUETIAPINE FUMARATE 25 MG TABLET PO SCH ×3 (08:51→17:00)
[2016-08-06] MEDS: HEPARIN SODIUM, PORCINE 5000 UNITS/1 ML VIAL SQ SCH (09:00)
[2016-08-06] MEDS: Z GUARD REMEDY 2 OZ OINT TP SCH (10:19)
[2016-08-06] MEDS ORDERED: ACET325T53 PO (14:35)
[2016-08-06] MEDS ORDERED: CLON0.5T4 PO (14:35)
[2016-08-06] MEDS ORDERED: OLAN10VI IM (14:35)
[2016-08-06] MEDS ORDERED: MIRT15TA PO (14:35)
[2016-08-06] MEDS ORDERED: LEVO250T2 PO (14:35)
[2016-08-06] MEDS ORDERED: METO50TA3 PO (14:35)
[2016-08-06] MEDS ORDERED: QUET100T PO (14:35)
[2016-08-06] MEDS ORDERED: QUET25TA PO (14:35)
[2016-08-06] MEDS ORDERED: LEVOFLOXACIN (250MG) 250 MG TABLET PO SCH (17:00)
== END 2016-08-06 20:20 | DRG 193 ==
LOC: TELE-TD 03:03 → TELE1 08-05 16:19
PROVIDERS: ADMIT Nurse Practitioner Acute Care; ATTEND Nurse Practitioner Acute Care
DX: J15.9 Unspecified bacterial pneumonia (principal); G93.40 Encephalopathy, unspecified; N17.0 Acute kidney failure with tubular necrosis; N39.0 Urinary tract infection, site not specified; E87.1 Hypo-osmolality and hyponatremia; L03.115 Cellulitis of right lower limb; L03.116 Cellulitis of left lower limb; F33.3 Major depressive disorder, recurrent, severe with psychotic symptoms; I50.32 Chronic diastolic (congestive) heart failure; L97.819 Non-pressure chronic ulcer of other part of right lower leg with unspecified severity; L97.829 Non-pressure chronic ulcer of other part of left lower leg with unspecified severity; I47.1 Supraventricular tachycardia; D72.829 Elevated white blood cell count, unspecified; I48.91 Unspecified atrial fibrillation; D63.8 Anemia in other chronic diseases classified elsewhere; E78.5 Hyperlipidemia, unspecified; F03.90 Unspecified dementia, unspecified severity, without behavioral disturbance, psychotic disturbance, mood disturbance, and anxiety; F41.9 Anxiety disorder, unspecified; I25.10 Atherosclerotic heart disease of native coronary artery without angina pectoris; K21.9 Gastro-esophageal reflux disease without esophagitis; Z16.12 Extended spectrum beta lactamase (ESBL) resistance; Z73.6 Limitation of activities due to disability; F29 Unspecified psychosis not due to a substance or known physiological condition; B96.20 Unspecified Escherichia coli [E. coli] as the cause of diseases classified elsewhere; I35.0 Nonrheumatic aortic (valve) stenosis; L89.150 Pressure ulcer of sacral region, unstageable; R62.7 Adult failure to thrive; I87.8 Other specified disorders of veins; I83.018 Varicose veins of right lower extremity with ulcer other part of lower leg; I83.028 Varicose veins of left lower extremity with ulcer other part of lower leg; I11.0 Hypertensive heart disease with heart failure; I25.2 Old myocardial infarction
CPT/HCPCS: 36415; 71010-TC; 80048-TC; 81000-TC; 85025-TC; 87040-TC; 87081-TC; 87086-TC; 87186-TC; 94799-TC; A4216; A4606; A6253; A6402; A6403; J0696; J1644; J2185; J3475; J3480; J3490; J7030; J7060; Z7610

== ENCOUNTER 2016-08-06 19:16 | Inpatient (IN) | payer MEDICARE, OTHER ==
[~2016-08-06] VITALS: Ht 144.8 cm; Wt 43.1 kg
[~2016-08-06 19:16] MED LIST changes: +ACET325T53 PO; +CLON0.5T4 PO; +LEVO250T2 PO; +METO50TA3 PO; +MIRT15TA PO; +OLAN10VI IM; +QUET100T PO; +QUET25TA PO
[2016-08-06 20:32] VITALS: BP 123/71
[2016-08-06] MEDS ORDERED: MAG HYDROX/AL HYDROX/SIMETH 30 ML UDC PO PRN (21:00)
[2016-08-06] MEDS ORDERED: MAGNESIUM HYDROXIDE 30 ML UDC PO PRN (21:00)
[2016-08-06] MEDS ORDERED: clonazePAM 0.5 MG TABLET PO PRN ×2 (21:00→21:30)
[2016-08-06] MEDS ORDERED: OLANZAPINE 10 MG VIAL IM PRN ×2 (21:30→23:30)
[2016-08-06] MEDS ORDERED: ACETAMINOPHEN 325 MG TABLET PO PRN (21:30)
[2016-08-06] MEDS ORDERED: ALBUTEROL HALF STRENGTH 1.25 MG/3 ML VIAL.NEB NEB PRN (21:30)
[2016-08-06] MEDS ORDERED: IPRATROPIUM NEB FS 0.5 MG/2.5 ML AMPUL.NEB NEB PRN (21:30)
[2016-08-06] MEDS ORDERED: LEVOFLOXACIN (250MG) 250 MG TABLET PO SCH (21:30)
[2016-08-06] MEDS ORDERED: TEMAZEPAM 7.5 MG CAPSULE PO PRN (22:00)
[2016-08-06] MEDS ORDERED: MIRTAZAPINE 15 MG TABLET PO SCH (22:00)
[2016-08-06] MEDS ORDERED: LEVOFLOXACIN (500MG) 500 MG TABLET PO SCH (22:00)
[2016-08-06] MEDS ORDERED: QUETIAPINE FUMARATE 100 MG TABLET PO SCH ×2 (22:00→23:30)
[2016-08-06] MEDS ORDERED: METOPROLOL TARTRATE 50 MG TABLET ONE (22:45)
[2016-08-06] MEDS: METOPROLOL TARTRATE 50 MG TABLET PO SCH (23:22)
[2016-08-07] MEDS ORDERED: METOPROLOL TARTRATE 50 MG TABLET ONE (06:06)
[2016-08-07] MEDS: METOPROLOL TARTRATE 50 MG TABLET PO SCH ×3 (06:11→17:31)
[2016-08-07] MEDS: ACETAMINOPHEN 325 MG TABLET PO PRN (06:12)
[2016-08-07 08:00] VITALS: BP 116/77
[2016-08-07] MEDS: LACTOBACILLUS RHAMNOSUS GG 1 EACH CAP.SPRINK PO SCH ×2 (09:00→17:00)
[2016-08-07] MEDS ORDERED: QUETIAPINE FUMARATE 25 MG TABLET PO SCH (09:00)
[2016-08-07] MEDS: MULTIPLE VIT/MINERALS 1 EA TABLET PO SCH (09:00)
[2016-08-07] MEDS: PROSOURCE / PROSTAT (PYXIS) 30 ML UDC PO SCH ×3 (09:00→17:00)
[2016-08-07] MEDS: ASCORBIC ACID 500 MG TABLET PO SCH (09:00)
[2016-08-07] MEDS ORDERED: ASPIRIN EC 81 MG TABLET.DR PO SCH (09:00)
[2016-08-07] MEDS: CHOLECALCIFEROL 1,000 UNIT TABLET (VIT D3) PO SCH (09:00)
[2016-08-07] MEDS: CYANOCOBALAMIN 500 MCG TABLET PO SCH (09:00)
[2016-08-07] MEDS ORDERED: Z GUARD REMEDY 2 OZ OINT TP PRN (10:00)
[2016-08-07] MEDS: Z GUARD REMEDY 2 OZ OINT TP SCH ×2 (13:09→17:31)
[2016-08-07 16:00] VITALS: BP 130/70
[2016-08-07] MEDS ORDERED: OLANZAPINE 10 MG VIAL IM SCH (17:00)
[2016-08-07 20:10] VITALS: BP 113/62
[2016-08-07] MEDS: LEVOFLOXACIN (250MG) 250 MG TABLET PO SCH (21:00)
[2016-08-07] MEDS: OLANZAPINE 5 MG/TAB.RAPDIS PO SCH (22:00)
[2016-08-07] MEDS: MIRTAZAPINE 15 MG TABLET PO SCH (22:00)
[2016-08-07] MEDS ORDERED: LEVOFLOXACIN (500MG) 500 MG TABLET PO SCH (22:00)
[2016-08-07] MEDS ORDERED: OLANZAPINE 10 MG VIAL IM ONE (22:24)
[2016-08-07] MEDS: OLANZAPINE 10 MG VIAL IM PRN (22:34)
[2016-08-08] MEDS: METOPROLOL TARTRATE 50 MG TABLET PO SCH ×4 (00:09→18:00)
[2016-08-08] MEDS: OLANZAPINE 5 MG/TAB.RAPDIS PO SCH ×2 (09:00→21:27)
[2016-08-08] MEDS: ASCORBIC ACID 500 MG TABLET PO SCH (09:00)
[2016-08-08] MEDS: CHOLECALCIFEROL 1,000 UNIT TABLET (VIT D3) PO SCH (09:00)
[2016-08-08] MEDS: PROSOURCE / PROSTAT (PYXIS) 30 ML UDC PO SCH ×3 (09:00→16:55)
[2016-08-08] MEDS: CYANOCOBALAMIN 500 MCG TABLET PO SCH (09:00)
[2016-08-08] MEDS: MULTIPLE VIT/MINERALS 1 EA TABLET PO SCH (09:00)
[2016-08-08] MEDS: LACTOBACILLUS RHAMNOSUS GG 1 EACH CAP.SPRINK PO SCH ×2 (09:00→16:55)
[2016-08-08] MEDS: Z GUARD REMEDY 2 OZ OINT TP SCH ×2 (09:15→16:57)
[2016-08-08] MEDS: OLANZAPINE 10 MG VIAL IM PRN ×2 (09:17→21:39)
[2016-08-08 09:20] VITALS: BP 95/55
[2016-08-08 15:43] VITALS: BP 108/58
[2016-08-08 20:00] VITALS: BP 109/61
[2016-08-08] MEDS: LEVOFLOXACIN (250MG) 250 MG TABLET PO SCH (21:12)
[2016-08-08] MEDS: MIRTAZAPINE 15 MG TABLET PO SCH (22:00)
[2016-08-09] MEDS: METOPROLOL TARTRATE 50 MG TABLET PO SCH ×5 (00:04→16:52)
[2016-08-09 08:00] VITALS: BP 117/75
[2016-08-09] MEDS: LACTOBACILLUS RHAMNOSUS GG 1 EACH CAP.SPRINK PO SCH ×2 (08:44→16:57)
[2016-08-09] MEDS: MULTIPLE VIT/MINERALS 1 EA TABLET PO SCH (08:44)
[2016-08-09] MEDS: ASCORBIC ACID 500 MG TABLET PO SCH (08:45)
[2016-08-09] MEDS: OLANZAPINE 5 MG/TAB.RAPDIS PO SCH ×2 (08:45→22:00)
[2016-08-09] MEDS: CYANOCOBALAMIN 500 MCG TABLET PO SCH (08:45)
[2016-08-09] MEDS: CHOLECALCIFEROL 1,000 UNIT TABLET (VIT D3) PO SCH (08:45)
[2016-08-09] MEDS: PROSOURCE / PROSTAT (PYXIS) 30 ML UDC PO SCH ×3 (08:45→16:57)
[2016-08-09] MEDS: Z GUARD REMEDY 2 OZ OINT TP SCH ×2 (08:46→17:00)
[2016-08-09] MEDS: OLANZAPINE 10 MG VIAL IM PRN (08:55)
[2016-08-09 16:09] VITALS: BP 121/64
[2016-08-09 20:00] VITALS: BP 122/73
[2016-08-09] MEDS: LEVOFLOXACIN (250MG) 250 MG TABLET PO SCH (21:22)
[2016-08-09] MEDS: MIRTAZAPINE 15 MG TABLET PO SCH (22:00)
[2016-08-10] MEDS: METOPROLOL TARTRATE 50 MG TABLET PO SCH ×5 (00:15→23:46)
[2016-08-10 08:00] VITALS: BP 119/76
[2016-08-10] MEDS: MULTIPLE VIT/MINERALS 1 EA TABLET PO SCH (08:28)
[2016-08-10] MEDS: CHOLECALCIFEROL 1,000 UNIT TABLET (VIT D3) PO SCH (08:29)
[2016-08-10] MEDS: CYANOCOBALAMIN 500 MCG TABLET PO SCH (08:29)
[2016-08-10] MEDS: LACTOBACILLUS RHAMNOSUS GG 1 EACH CAP.SPRINK PO SCH ×2 (08:29→17:00)
[2016-08-10] MEDS: OLANZAPINE 5 MG/TAB.RAPDIS PO SCH ×2 (08:29→22:00)
[2016-08-10] MEDS: PROSOURCE / PROSTAT (PYXIS) 30 ML UDC PO SCH ×3 (08:29→17:00)
[2016-08-10] MEDS: ASCORBIC ACID 500 MG TABLET PO SCH (08:29)
[2016-08-10] MEDS: Z GUARD REMEDY 2 OZ OINT TP SCH ×2 (08:30→17:06)
[2016-08-10 16:00] VITALS: BP 147/70
[2016-08-10 20:00] VITALS: BP 128/74
[2016-08-10] MEDS: ACETAMINOPHEN 325 MG TABLET PO PRN (20:00)
[2016-08-10] MEDS: LEVOFLOXACIN (250MG) 250 MG TABLET PO SCH (20:07)
[2016-08-10] MEDS: MIRTAZAPINE 15 MG TABLET PO SCH (22:00)
[2016-08-11] MEDS: ACETAMINOPHEN 325 MG TABLET PO PRN (04:01)
[2016-08-11] MEDS: METOPROLOL TARTRATE 50 MG TABLET PO SCH ×3 (06:00→16:49)
[2016-08-11 08:00] VITALS: BP 128/67
[2016-08-11] MEDS: LACTOBACILLUS RHAMNOSUS GG 1 EACH CAP.SPRINK PO SCH ×2 (08:37→16:47)
[2016-08-11] MEDS: CHOLECALCIFEROL 1,000 UNIT TABLET (VIT D3) PO SCH (08:37)
[2016-08-11] MEDS: PROSOURCE / PROSTAT (PYXIS) 30 ML UDC PO SCH ×3 (08:37→17:00)
[2016-08-11] MEDS: CYANOCOBALAMIN 500 MCG TABLET PO SCH (08:37)
[2016-08-11] MEDS: ASCORBIC ACID 500 MG TABLET PO SCH (08:37)
[2016-08-11] MEDS: MULTIPLE VIT/MINERALS 1 EA TABLET PO SCH (08:37)
[2016-08-11] MEDS: Z GUARD REMEDY 2 OZ OINT TP SCH ×2 (08:38→16:50)
[2016-08-11] MEDS: OLANZAPINE 5 MG/TAB.RAPDIS PO SCH ×2 (08:38→21:20)
[2016-08-11 16:16] VITALS: BP 119/72
[2016-08-11 20:00] VITALS: BP 110/59
[2016-08-11] MEDS: LEVOFLOXACIN (250MG) 250 MG TABLET PO SCH (20:39)
[2016-08-11] MEDS: MIRTAZAPINE 15 MG TABLET PO SCH (21:20)
[2016-08-12 08:00] VITALS: BP 127/60
[2016-08-12] MEDS: METOPROLOL TARTRATE 50 MG TABLET PO SCH ×2 (08:45→17:12)
[2016-08-12] MEDS: CHOLECALCIFEROL 1,000 UNIT TABLET (VIT D3) PO SCH (08:46)
[2016-08-12] MEDS: LACTOBACILLUS RHAMNOSUS GG 1 EACH CAP.SPRINK PO SCH ×2 (08:46→16:14)
[2016-08-12] MEDS: ASCORBIC ACID 500 MG TABLET PO SCH (08:46)
[2016-08-12] MEDS: PROSOURCE / PROSTAT (PYXIS) 30 ML UDC PO SCH ×3 (08:46→16:15)
[2016-08-12] MEDS: MULTIPLE VIT/MINERALS 1 EA TABLET PO SCH (08:46)
[2016-08-12] MEDS: CYANOCOBALAMIN 500 MCG TABLET PO SCH (08:46)
[2016-08-12] MEDS: OLANZAPINE 5 MG/TAB.RAPDIS PO SCH ×2 (08:47→21:46)
[2016-08-12] MEDS: Z GUARD REMEDY 2 OZ OINT TP SCH ×2 (09:09→17:12)
[2016-08-12 16:00] VITALS: BP 131/62
[2016-08-12 20:11] VITALS: BP 112/62
[2016-08-12] MEDS: MIRTAZAPINE 15 MG TABLET PO SCH (21:46)
[2016-08-12] MEDS: LEVOFLOXACIN (250MG) 250 MG TABLET PO SCH (21:46)
[2016-08-12 22:51] LABS: ADD UA MICROSCOPIC YES; KETONES,URINE NEGATIVE (NEGATIVE); LEUKOCYTE ESTERASE ,URINE TRACE (NEGATIVE)
[2016-08-12 22:59] LABS: ADD URINE CULTURE YES; RBC,URINE 0-2 /HPF (0-2)
[2016-08-13 08:00] VITALS: BP 109/68
[2016-08-13] MEDS: METOPROLOL TARTRATE 50 MG TABLET PO SCH ×2 (08:16→18:00)
[2016-08-13] MEDS: OLANZAPINE 5 MG/TAB.RAPDIS PO SCH (08:19)
[2016-08-13] MEDS: PROSOURCE / PROSTAT (PYXIS) 30 ML UDC PO SCH ×3 (08:19→16:53)
[2016-08-13] MEDS: MULTIPLE VIT/MINERALS 1 EA TABLET PO SCH (08:19)
[2016-08-13] MEDS: ASCORBIC ACID 500 MG TABLET PO SCH (08:19)
[2016-08-13] MEDS: LACTOBACILLUS RHAMNOSUS GG 1 EACH CAP.SPRINK PO SCH ×2 (08:19→16:53)
[2016-08-13] MEDS: CYANOCOBALAMIN 500 MCG TABLET PO SCH (08:19)
[2016-08-13] MEDS: CHOLECALCIFEROL 1,000 UNIT TABLET (VIT D3) PO SCH (08:20)
[2016-08-13] MEDS: Z GUARD REMEDY 2 OZ OINT TP SCH ×2 (08:56→18:00)
[2016-08-13 16:00] VITALS: BP 125/72
[2016-08-13 19:57] VITALS: BP 132/65
[2016-08-13] MEDS: LEVOFLOXACIN (250MG) 250 MG TABLET PO SCH (21:48)
[2016-08-13] MEDS: MIRTAZAPINE 15 MG TABLET PO SCH (21:49)
[2016-08-13] MEDS ORDERED: OLANZAPINE 5 MG/TAB.RAPDIS PO SCH (22:00)
[2016-08-14 08:00] VITALS: BP 134/84
[2016-08-14] MEDS: CHOLECALCIFEROL 1,000 UNIT TABLET (VIT D3) PO SCH (09:00)
[2016-08-14] MEDS: CYANOCOBALAMIN 500 MCG TABLET PO SCH (09:00)
[2016-08-14] MEDS: MULTIPLE VIT/MINERALS 1 EA TABLET PO SCH (09:00)
[2016-08-14] MEDS: LACTOBACILLUS RHAMNOSUS GG 1 EACH CAP.SPRINK PO SCH ×2 (09:00→17:00)
[2016-08-14] MEDS: ASCORBIC ACID 500 MG TABLET PO SCH (09:00)
[2016-08-14] MEDS: METOPROLOL TARTRATE 50 MG TABLET PO SCH ×2 (09:00→18:31)
[2016-08-14] MEDS: PROSOURCE / PROSTAT (PYXIS) 30 ML UDC PO SCH ×3 (09:00→17:00)
[2016-08-14] MEDS: Z GUARD REMEDY 2 OZ OINT TP SCH ×2 (10:07→17:00)
[2016-08-14 16:00] VITALS: BP_SYST 137
[2016-08-14] MEDS: LEVOFLOXACIN (250MG) 250 MG TABLET PO SCH (21:08)
[2016-08-14 21:18] VITALS: BP 115/51
[2016-08-14] MEDS: MIRTAZAPINE 15 MG TABLET PO SCH (22:00)
[2016-08-15] MEDS: ACETAMINOPHEN 325 MG TABLET PO PRN (05:52)
[2016-08-15 08:40] VITALS: BP 115/83
[2016-08-15] MEDS: MULTIPLE VIT/MINERALS 1 EA TABLET PO SCH (09:00)
[2016-08-15] MEDS: LACTOBACILLUS RHAMNOSUS GG 1 EACH CAP.SPRINK PO SCH (09:00)
[2016-08-15] MEDS: Z GUARD REMEDY 2 OZ OINT TP SCH (09:00)
[2016-08-15] MEDS: CYANOCOBALAMIN 500 MCG TABLET PO SCH (09:00)
[2016-08-15] MEDS: CHOLECALCIFEROL 1,000 UNIT TABLET (VIT D3) PO SCH (09:00)
[2016-08-15] MEDS: PROSOURCE / PROSTAT (PYXIS) 30 ML UDC PO SCH ×2 (09:00→13:00)
[2016-08-15] MEDS: ASCORBIC ACID 500 MG TABLET PO SCH (09:00)
[2016-08-15 10:00] VITALS: BP 115/83
[2016-08-15] MEDS: METOPROLOL TARTRATE 50 MG TABLET PO SCH (10:00)
== END 2016-08-15 16:00 | DRG 885 ==
LOC: GPS 19:16
PROVIDERS: ADMIT Psychiatry & Neurology Psychiatry; ATTEND Internal Medicine
DX: F33.3 Major depressive disorder, recurrent, severe with psychotic symptoms (principal); G93.40 Encephalopathy, unspecified; L03.115 Cellulitis of right lower limb; L03.116 Cellulitis of left lower limb; I50.32 Chronic diastolic (congestive) heart failure; L97.919 Non-pressure chronic ulcer of unspecified part of right lower leg with unspecified severity; L97.929 Non-pressure chronic ulcer of unspecified part of left lower leg with unspecified severity; N39.0 Urinary tract infection, site not specified; L89.150 Pressure ulcer of sacral region, unstageable; E78.5 Hyperlipidemia, unspecified; I10 Essential (primary) hypertension; D63.8 Anemia in other chronic diseases classified elsewhere; F03.90 Unspecified dementia, unspecified severity, without behavioral disturbance, psychotic disturbance, mood disturbance, and anxiety; I83.019 Varicose veins of right lower extremity with ulcer of unspecified site; I83.029 Varicose veins of left lower extremity with ulcer of unspecified site; F41.9 Anxiety disorder, unspecified; I25.10 Atherosclerotic heart disease of native coronary artery without angina pectoris; I48.91 Unspecified atrial fibrillation; I87.8 Other specified disorders of veins; J44.9 Chronic obstructive pulmonary disease, unspecified; K21.9 Gastro-esophageal reflux disease without esophagitis; R62.7 Adult failure to thrive; Z16.12 Extended spectrum beta lactamase (ESBL) resistance; Z91.19 Patient's noncompliance with other medical treatment and regimen
CPT/HCPCS: 81000-TC; 87081-TC; 87086-TC; 87186-TC; A6402; A6403; J3490

== ENCOUNTER 2016-09-07 22:12 | Inpatient (IN) | payer MEDICARE, OTHER ==
[~2016-09-07] VITALS: Ht 149.9 cm; Wt 46.3 kg
[~2016-09-07 22:12] MED LIST changes: -CEFT1FRO2 IV; -TYL2T PO
--- NOTE | 2016-09-07 22:38 | NUR ---
PT STATES SHE DOES NOT WANT TO BE CHECKED INTO [facility] ER, PT DENIES ANY MEDICAL COMPLAINTS. PT IS ALERT X 4, IS AWARE THAT HER PRIMARY MD MONY WANTS HER CHECKED INTO THE ED. PT STATES SHE WANTS TO SIT IN ER WR AND DOES NOT WANT ANY VS OR BLOOD DRAW. CHARGE NURSE CONCHA NOTIFIED
--- NOTE | 2016-09-07 22:45 | NUR ---
PT CONTINUES TO REFUSE ANY MEDICAL TREATMENT. PT IS CALM AND COOPERATIVE. PT A/OX3. PT STATES THAT SHE DOES NOT WANT TO STAY AT THE BOARD AND CARE, HOWEVER HAS NOWHERE ELSE TO GO AND NO FAMILY TO CONTACT. PT REQUESTING HELP WITH ALTERNATIVE PLACEMENT. PT INFORMED THAT A MEDICAL SCREENING IS NECESSARY HOWEVER PT REFUSES.
[2016-09-08] MEDS ORDERED: ZINC220C8 PO (09:25)
[2016-09-08] MEDS ORDERED: METO25TA20 PO (09:25)
[2016-09-08] MEDS ORDERED: ACET-868 PO (09:25)
--- NOTE | 2016-09-08 11:00 | NUR ---
ASSUME PT CARE. RESTING IN BED. FROM A BOARD AND CARE SENT BY DR CHAVARRIA. HERE FRO MEDICAL AND PSYCH EVAL. REPORT STATES SHE REFUSED BLOOD DRAW. AAOX3. IN NO APPARENT DISTRESS. WILL MONITOR.
--- NOTE | 2016-09-08 11:23 | NUR ---
CALLED NURSING SUP. FOR GPS BED
--- NOTE | 2016-09-08 12:05 | NUR ---
REPORT GIVEN TO AMARILIS. PT AWAITING TRANSFER TO FLOOR.
[2016-09-08] MEDS ORDERED: MAGNESIUM HYDROXIDE 30 ML UDC PO PRN (12:30)
[2016-09-08] MEDS ORDERED: clonazePAM 0.5 MG TABLET PO PRN (12:30)
[2016-09-08] MEDS ORDERED: MAG HYDROX/AL HYDROX/SIMETH 30 ML UDC PO PRN (12:30)
--- NOTE | 2016-09-08 12:30 | NUR ---
GPS/RN RECEIVED PT FROM ER VIA W/C ON 5149 HOLD FOR GD.ON FACE TO FACE ASSESSMENT PT STATES NO SI OR HI. NO ACUTE DISTRESS NOTED. PT RESISTIVE TO CARE, REFUSED LABS @ER.PT REFUSED TO SIGN THE ADMISSION FORMS/CONSENTS. REFUSED FULL BODY ASSESSMENT. REDNESS BLE NOTED WITH DRESSINGS. ADMITTING ORDERS FROM DR GRANT RECEIVED AND CARRIED OUT. DR ORTA MADE AWARE OF ADMISSION AND MEDS ARE READY FOR HER TO RECONCILE.
[2016-09-08 12:57] VITALS: BP 148/83
--- NOTE | 2016-09-08 13:29 | NUR ---
GPS/RN PT REFUSED MRSA SWAB. UNABLE TO NOTIFY FAMILY OF ADMISSION THE PHONE LISTED IN FACE SHEET IS DISCONNECTED.
[2016-09-08] MEDS ORDERED: IPRATROPIUM NEB FS 0.5 MG/2.5 ML AMPUL.NEB NEB PRN (14:00)
[2016-09-08] MEDS ORDERED: ALBUTEROL HALF STRENGTH 1.25 MG/3 ML VIAL.NEB NEB PRN (14:00)
[2016-09-08 16:19] VITALS: BP 143/71
[2016-09-08] MEDS: METOPROLOL TARTRATE 25 MG TABLET PO SCH (16:40)
[2016-09-08] MEDS: LACTOBACILLUS RHAMNOSUS GG 1 EACH CAP.SPRINK PO SCH (16:45)
[2016-09-08] MEDS: PROSOURCE / PROSTAT (PYXIS) 30 ML UDC PO SCH (16:47)
[2016-09-08] MEDS ORDERED: [UNRECOGNIZED DRUG - OTHER] PO SCH (17:00)
[2016-09-08] MEDS ORDERED: BIFIDOBACTERIUM ANIMALIS PO SCH (17:00)
[2016-09-08] MEDS ORDERED: LACTOBACILLUS ACIDOPHILUS PO SCH (17:00)
[2016-09-08] MEDS ORDERED: BIFIDOBACTERIUM LONGUM PO SCH (17:00)
[2016-09-08 20:00] VITALS: BP 138/67
--- NOTE | 2016-09-08 20:00 | NUR ---
RECEIVED PATIENT UP ON CHAIR IN ACTIVITY ROOM, ALERT AND ORIENTED X1, FLAT AFFECT, CALM AT THIS TIME, ABLE TO ANSWER QUESTIONS APPROPRIATELY. NO DISTRESS, DENIES ANY PAIN AT THIS TIME, KEPT SAFE AND COMFORTABLE, WILL CONTINUE TO MONITOR.
[2016-09-08 22:00] VITALS: BP 138/67
[2016-09-08] MEDS ORDERED: TEMAZEPAM 7.5 MG CAPSULE PO PRN (22:00)
[2016-09-09 08:00] VITALS: BP 127/62
[2016-09-09] MEDS: METOPROLOL TARTRATE 25 MG TABLET PO SCH ×2 (08:17→17:00)
[2016-09-09] MEDS: ACETAMINOPHEN 325 MG TABLET PO SCH (08:17)
[2016-09-09] MEDS: ZINC SULFATE 220 MG CAPSULE PO SCH (08:19)
[2016-09-09] MEDS: PROSOURCE / PROSTAT (PYXIS) 30 ML UDC PO SCH ×2 (08:19→17:00)
[2016-09-09] MEDS: MULTIVITAMINS W-MINERALS 1 TAB TABLET PO SCH (08:19)
[2016-09-09] MEDS: LACTOBACILLUS RHAMNOSUS GG 1 EACH CAP.SPRINK PO SCH ×2 (08:19→17:00)
[2016-09-09] MEDS: CYANOCOBALAMIN 500 MCG TABLET PO SCH (08:19)
[2016-09-09] MEDS: QUETIAPINE FUMARATE 25 MG TABLET PO SCH ×2 (10:00→17:00)
--- NOTE | 2016-09-09 11:34 | NUR ---
GPS RN NOTE: PATIENT IN THE DINNING ROOM REFUSING TO GO TO BED, WAS SEEN BY HAI MARKS ,ORDER TO \CLEAN WOUNDS WITH NS, PAT DRY APPLY XEROFORM ,WRAP WITH KERLIX SECURE WITH TAPE. ORDER WILL CARED OUT TO CONTINUE MONITORING FOR SAFETY AND BEHAVIOR Q 15 MIN
--- NOTE | 2016-09-09 14:21 | NUR ---
GPS RN NOTE: CLEANSE WOUNDS WITH SALINE, APPLY XEROFORM AND COVER THEM WITH KERLIX, SACRAL HEALED PRESSURE CLEANSE WITH SOAP AND WATER AND APPLY Z-GUARD BARRIER CREAM DAILY AND NEEDED WILL CONTINUE MONITORING FOR SAFETY A BEHAVIOR Q 15 MIN
[2016-09-09 16:00] VITALS: BP 131/75
--- NOTE | 2016-09-09 18:14 | NUR ---
GPS RN NOTE; PATIENT NON COMPLIANT WITH TX REFUSED LABS REFUSED TO TAKE MEDICATIONS, UNABLE TO COLLECT URINE, EXPLAIN PATIENT RISK AND BENEFITS X3 PATIENT CONTINUE REFUSING WILL INDORSE TO INCOMING SHIFT NURSE AND CONTINUE MONITORING
[2016-09-09 20:20] VITALS: BP 123/69
[2016-09-09] MEDS: MIRTAZAPINE 15 MG TABLET PO SCH (21:32)
--- NOTE | 2016-09-10 00:49 | NUR ---
Pt has been med compliant but difficult to redirect.
[2016-09-10] MEDS: ACETAMINOPHEN 325 MG TABLET PO PRN (06:28)
[2016-09-10 08:00] VITALS: BP 137/73
[2016-09-10] MEDS: CYANOCOBALAMIN 500 MCG TABLET PO SCH (09:00)
[2016-09-10] MEDS: ZINC SULFATE 220 MG CAPSULE PO SCH (09:00)
[2016-09-10] MEDS: METOPROLOL TARTRATE 25 MG TABLET PO SCH ×2 (09:00→17:00)
[2016-09-10] MEDS: LACTOBACILLUS RHAMNOSUS GG 1 EACH CAP.SPRINK PO SCH ×2 (09:00→17:00)
[2016-09-10] MEDS: MULTIVITAMINS W-MINERALS 1 TAB TABLET PO SCH (09:00)
[2016-09-10] MEDS: PROSOURCE / PROSTAT (PYXIS) 30 ML UDC PO SCH ×2 (09:00→17:00)
[2016-09-10] MEDS: QUETIAPINE FUMARATE 25 MG TABLET PO SCH ×2 (09:16→17:00)
[2016-09-10] MEDS: ACETAMINOPHEN 325 MG TABLET PO SCH (09:19)
--- NOTE | 2016-09-10 09:28 | NUR ---
PATIENT REUSED AM MEDS, EXPLAINED IMPORTANCE, RISK, BENEFITS OF THE MEDICATIONS, PATIENT STILL REFUSED. OPENED CAP MEDICATIONS (CULTURELLE, OCUVITE) WAS WAISTED, THE REST OF THE MEDICATIONS RETURNED TO THE PHARMACY. PATIENT AGREED TO TAKE TYLENOL 650MG PO TAB, PATIENT STATED A LITTLE PAIN IN HER LEGS, AND AGREED TO TAKE SEROQUEL 12.5MG TAB.
--- NOTE | 2016-09-10 11:36 | NUR ---
UN ABLE TO COLLECT SPECIMEN SAMPLE FOR MRSA ACTIVE SURVEILLANCE, PATIENT REFUSING, EXPLAINED IMPORTANCE, RISK AND BENEFITS OF THE TEST, PATIENT STILL REFUSED X3.
[2016-09-10] MEDS ORDERED: Z GUARD REMEDY 2 OZ OINT TP PRN (12:30)
--- NOTE | 2016-09-10 14:04 | NUR ---
WOUND CARE CONSULT: PATIENT SEEN AND SKIN ASSESSMENT DONE. PATIENT ALERT, INCONTINENT, CM 18, INDEPENDENT WITH BED MOBILITY HOWEVER NEEDS PROMPTING. SEE TODAY'S SKIN ASSESSMENT IN PCS ALONG WITH RECOMMENDATIONS. RECOMMEND MOISTURE PROTECTION WITH Z GUARD ORDERED AND PRESSURE PREVENTION MEASURES, PROMPT PATIENT TO TURN AND REPOSITION EVERY 2 HRS PATIENT CONDITION PERMITS, ELEVATE LOWER LEGS, OFFLOADING. ALL DISCUSSED WITH NURSING STAFF. MD IN AGREEMENT WITH PLAN OF CARE. Addendum: 09/10/16 at 1410 by DEBRA DOWNEY WNDNU Amended: Links added.
--- NOTE | 2016-09-10 14:27 | NUR ---
WOUND DRESSING DONE, PATIENT TOLERATED WELL WITH NO C/O PAIN AT THIS TIME. SACRAL WITH BLANCHING REDNESS, PERINEAL CARE PROVIDED. PATIENT ABLE TO TURN AND REPOSITION IN BED WITH MINIMAL ASSIST.
[2016-09-10 16:00] VITALS: BP 105/61
--- NOTE | 2016-09-10 16:33 | NUR ---
Initial discharge plan: Pt currently has no place to go and will need placement. Pt. was discharged from [facility] [address] [facility] [address] to a board and care, where pt. does not want to return and did not want to enter, as she did not trust the facility and states she wants an assisted living not a board and care. SW will work with MD and family and will help form safe and proper discharge.
--- NOTE | 2016-09-10 16:53 | NUR ---
REVIEWED FLU VACCINE STATUS, PATIENT REFUSING VACCINE, EXPLAINED IMPORTANCE, RISK , BENEFITS OF THE VAC. PATIENT STILL REFUSED X3.
--- NOTE | 2016-09-10 18:40 | NUR ---
RN CLOSING NOTES PATIENT IS AWAKE, SITTING UP IN THE BED. NOT IN DISTRESS. ON PAIN MANAGEMENT, NO C/O PAIN AT THIS TIME. CONTINUE OF 5250 ORDERED. FOR RIESE AND HEARING IN AM AT 9:30. DR. GRANT IS AWARE. WILL ENDORSE TO PERSONNEL SECURITY SPECIALIST RN FOR CONTINUITY OF CARE.
[2016-09-10] MEDS: MIRTAZAPINE 15 MG TABLET PO SCH (21:20)
--- NOTE | 2016-09-10 21:20 | NUR ---
RN NOTES - MEDICATION REFUSAL SCHEDULED MEDICATION MIRTAZAPINE 15MG NON-ADMINISTERED DUE TO PATIENT REFUSAL. EXPLAINED WHAT THE MEDICATION IS, WHY ITS ORDERED, AND HOW IT WILL BENEFIT THE PATIENT. VERBALIZES UNDERSTANDING, BUT STILL STRONGLY REFUSING. WILL CONTINUE TO CLOSELY MONITOR
[2016-09-10 22:48] VITALS: BP 129/66
[2016-09-11] MEDS: METOPROLOL TARTRATE 25 MG TABLET PO SCH ×2 (08:29→16:41)
[2016-09-11] MEDS: LACTOBACILLUS RHAMNOSUS GG 1 EACH CAP.SPRINK PO SCH ×2 (08:29→16:38)
[2016-09-11] MEDS: PROSOURCE / PROSTAT (PYXIS) 30 ML UDC PO SCH ×2 (08:30→16:41)
[2016-09-11] MEDS: MULTIVITAMINS W-MINERALS 1 TAB TABLET PO SCH (08:30)
[2016-09-11] MEDS: ACETAMINOPHEN 325 MG TABLET PO SCH (08:31)
[2016-09-11] MEDS: ZINC SULFATE 220 MG CAPSULE PO SCH (08:31)
[2016-09-11] MEDS: CYANOCOBALAMIN 500 MCG TABLET PO SCH (08:31)
[2016-09-11] MEDS: QUETIAPINE FUMARATE 25 MG TABLET PO SCH ×2 (08:31→16:42)
[2016-09-11 08:34] VITALS: BP 150/86
--- NOTE | 2016-09-11 09:03 | NUR ---
GPS RN NOTES: PT SITTING IN BED PT TOOK ONLY METOPROL MEDICATION FOR AM AND REFUSED OTHER AM MEDS EXPLAINED RISKS AND BENEFITS , PT. CONTINUE REFUSING.WILL CONTINUE TO MONITOR.
[2016-09-11] MEDS: OLANZAPINE 10 MG VIAL IM SCH ×2 (11:00→17:04)
--- NOTE | 2016-09-11 14:17 | NUR ---
Pt. was referred to [facility] [address] [place] [address] . will follow up
--- NOTE | 2016-09-11 14:50 | NUR ---
GPS RN NOTES PT IN BED REFUSED TO GO TO DINNING ROOM, CHANGE DRESSING WOUND TX DONE , Z GUARD APPLY AND PT COMPLY WITH TX , WILL CONTINUE TO MONITOR .
[2016-09-11 16:49] VITALS: BP 149/77
[2016-09-11 20:32] VITALS: BP 122/68
[2016-09-11] MEDS: MIRTAZAPINE 15 MG TABLET PO SCH (21:37)
[2016-09-12 08:00] VITALS: BP 158/73
[2016-09-12] MEDS: QUETIAPINE FUMARATE 25 MG TABLET PO SCH ×3 (09:00→17:00)
[2016-09-12] MEDS: PROSOURCE / PROSTAT (PYXIS) 30 ML UDC PO SCH ×3 (09:00→17:00)
[2016-09-12] MEDS: LACTOBACILLUS RHAMNOSUS GG 1 EACH CAP.SPRINK PO SCH ×3 (09:00→17:00)
[2016-09-12] MEDS: METOPROLOL TARTRATE 25 MG TABLET PO SCH ×4 (09:00→18:52)
[2016-09-12] MEDS: ACETAMINOPHEN 325 MG TABLET PO SCH (09:16)
[2016-09-12] MEDS: CYANOCOBALAMIN 500 MCG TABLET PO SCH (09:16)
[2016-09-12] MEDS: MULTIVITAMINS W-MINERALS 1 TAB TABLET PO SCH (09:16)
[2016-09-12] MEDS: ZINC SULFATE 220 MG CAPSULE PO SCH (09:18)
[2016-09-12] MEDS: OLANZAPINE 10 MG VIAL IM SCH (09:31)
--- NOTE | 2016-09-12 10:00 | NUR ---
REFUSED AM MEDS INCLUDING BP MEDS AND SEROQUEL,SO ZYPREXA INJECTION GIVEN.
--- NOTE | 2016-09-12 11:53 | NUR ---
UR update: JARED left clinical review for Zenobia S from [facility] [phone] EXT. [phone] AUTH # [id number]. JARED notified her of possible placement and requested a call back to discuss the case. JARED will follow up
[2016-09-12] MEDS ORDERED: METOPROLOL TARTRATE 50 MG TABLET PO ONE (13:00)
--- NOTE | 2016-09-12 13:08 | NUR ---
DR. GRANT INFORMED PT REFUSED SEROQUEL IN AM,ADDITIONALLY REQUESTED THAT PT. TAKE LOPRESSOR NOW.PT. AGREEABLE ,MED GIVEN.
[2016-09-12 16:00] VITALS: BP 126/71
--- NOTE | 2016-09-12 18:19 | NUR ---
REFUSED CURT. SEROQUEL,GIVEN ZYPREXA AGAIN.EATING DINNER IN HER ROOM.
--- NOTE | 2016-09-12 18:22 | NUR ---
DR. NAGY IN TO SEE PT.
[2016-09-12 20:07] VITALS: BP 106/65
[2016-09-12] MEDS: MIRTAZAPINE 15 MG TABLET PO SCH (22:00)
--- NOTE | 2016-09-12 22:00 | NUR ---
PATIENT REFUSED TO TAKE REMERON PO, EDUCATED THE PATIENT RISKS. SHE STILL INSISTED THAT SHE IS NOT TAKING THE MED. NON-ADMINISTERED AND RETURNED TO [facility].
[2016-09-13 08:00] VITALS: BP 135/87
[2016-09-13] MEDS: LACTOBACILLUS RHAMNOSUS GG 1 EACH CAP.SPRINK PO SCH ×2 (08:36→17:00)
[2016-09-13] MEDS: METOPROLOL TARTRATE 25 MG TABLET PO SCH ×2 (08:38→16:20)
[2016-09-13] MEDS: QUETIAPINE FUMARATE 25 MG TABLET PO SCH ×2 (08:39→16:19)
[2016-09-13] MEDS: PROSOURCE / PROSTAT (PYXIS) 30 ML UDC PO SCH ×2 (08:51→17:00)
[2016-09-13] MEDS: MULTIVITAMINS W-MINERALS 1 TAB TABLET PO SCH (08:51)
[2016-09-13] MEDS: OLANZAPINE 10 MG VIAL IM SCH ×2 (08:51→16:20)
[2016-09-13] MEDS: CYANOCOBALAMIN 500 MCG TABLET PO SCH (08:52)
[2016-09-13] MEDS: ACETAMINOPHEN 325 MG TABLET PO SCH (08:52)
[2016-09-13] MEDS: ZINC SULFATE 220 MG CAPSULE PO SCH (08:52)
--- NOTE | 2016-09-13 14:32 | NUR ---
RN NOTES PATIENT ALLOWING DRESSING CHANGE. COMPLETED AND PATIENT STATED THANKS
--- NOTE | 2016-09-13 15:22 | NUR ---
UR update: JARED left a voicemail for Zenobia Brennan from [facility] [phone] EXT. [phone] AUTH # [id number] to follow up on authorization for further days.
--- NOTE | 2016-09-13 15:24 | NUR ---
Calin from [facility] [address] [place] [address] came to asses the patient today. Per Calin, they are able to accept the patient.
[2016-09-13 16:00] VITALS: BP 96/50
--- NOTE | 2016-09-13 16:22 | NUR ---
RN NOTES PATIENT REFUSING CULTURELLE AND PROSOURCE. COMPLIANT WITH SEROQUEL. HOLDING METOPROLOL LOW SYSTOLIC BP
--- NOTE | 2016-09-13 16:53 | NUR ---
RN NOTES PATIENT STILL REFUSING THE REST OF THE 1700 MEDICATIONS
[2016-09-13 19:54] VITALS: BP 112/59
[2016-09-13 20:00] VITALS: BP 112/59
[2016-09-13] MEDS: MIRTAZAPINE 15 MG TABLET PO SCH (20:59)
--- NOTE | 2016-09-13 20:59 | NUR ---
RN NOTE PT REFUSED REMERON 15MG. MULTIPLE ATTEMPTS PERFORMED.
[2016-09-14 08:19] VITALS: BP 140/60
[2016-09-14] MEDS: METOPROLOL TARTRATE 25 MG TABLET PO SCH ×2 (08:54→16:52)
[2016-09-14] MEDS: QUETIAPINE FUMARATE 25 MG TABLET PO SCH ×2 (08:54→16:52)
[2016-09-14] MEDS: PROSOURCE / PROSTAT (PYXIS) 30 ML UDC PO SCH ×2 (08:55→16:58)
[2016-09-14] MEDS: OLANZAPINE 10 MG VIAL IM SCH ×2 (08:59→17:00)
[2016-09-14] MEDS: LACTOBACILLUS RHAMNOSUS GG 1 EACH CAP.SPRINK PO SCH ×2 (08:59→17:00)
[2016-09-14] MEDS: MULTIVITAMINS W-MINERALS 1 TAB TABLET PO SCH (08:59)
[2016-09-14] MEDS: ACETAMINOPHEN 325 MG TABLET PO SCH (08:59)
[2016-09-14] MEDS: ZINC SULFATE 220 MG CAPSULE PO SCH (09:00)
[2016-09-14] MEDS: CYANOCOBALAMIN 500 MCG TABLET PO SCH (09:00)
--- NOTE | 2016-09-14 09:01 | NUR ---
GPS RN: PATIENT IS SELECTIVE WITH MORNING MEDICATIONS. ATTEMPTED X3. TOOK SEROQUEL AND METOPROLOL ONLY, DESPITE OF EXPLANATION OF THE IMPORTANCE OF MEDICATIONS. ZYPREXA IM NOT ADMINISTERED, PATIENT TOOK SEROQUEL.
--- NOTE | 2016-09-14 14:06 | NUR ---
UR update: JARED with Love from [employer] [phone] EXT. [phone] and we are authorized through the weekend with a review due on 09/17/16. AUTH # [id number]
[2016-09-14 16:45] VITALS: BP 142/75
--- NOTE | 2016-09-14 17:04 | NUR ---
GPS RN: PATIENT IS SELECTIVE WITH 1700 MEDS, HOWEVER, TOOK SEROQUEL, DID NOT ADMINISTER ZYPREXA IM.
[2016-09-14 20:22] VITALS: BP 112/59
[2016-09-14] MEDS: MIRTAZAPINE 15 MG TABLET PO SCH (22:20)
[2016-09-15] MEDS: QUETIAPINE FUMARATE 25 MG TABLET PO SCH ×2 (08:26→17:05)
[2016-09-15] MEDS: METOPROLOL TARTRATE 25 MG TABLET PO SCH ×2 (08:26→17:00)
[2016-09-15] MEDS: OLANZAPINE 10 MG VIAL IM SCH ×2 (08:30→17:00)
[2016-09-15] MEDS: PROSOURCE / PROSTAT (PYXIS) 30 ML UDC PO SCH ×2 (08:30→17:00)
[2016-09-15] MEDS: LACTOBACILLUS RHAMNOSUS GG 1 EACH CAP.SPRINK PO SCH ×2 (08:30→17:00)
[2016-09-15] MEDS: MULTIVITAMINS W-MINERALS 1 TAB TABLET PO SCH (08:30)
[2016-09-15] MEDS: ACETAMINOPHEN 325 MG TABLET PO SCH (08:31)
[2016-09-15] MEDS: CYANOCOBALAMIN 500 MCG TABLET PO SCH (08:31)
[2016-09-15] MEDS: ZINC SULFATE 220 MG CAPSULE PO SCH (08:31)
[2016-09-15 08:41] VITALS: BP 134/74
--- NOTE | 2016-09-15 15:21 | NUR ---
REFUSED BILATERAL LEG DRESSING CHANGES.
[2016-09-15 16:11] VITALS: BP 115/69
--- NOTE | 2016-09-15 17:14 | NUR ---
LILI PRAJAPATI FOR THIS AM AND HELD PT. TOOK ORAL SEROQUEL.
[2016-09-15 20:00] VITALS: BP 106/54
[2016-09-15] MEDS: MIRTAZAPINE 15 MG TABLET PO SCH (21:49)
[2016-09-16 08:00] VITALS: BP 116/61
[2016-09-16] MEDS: QUETIAPINE FUMARATE 25 MG TABLET PO SCH ×2 (08:15→17:15)
[2016-09-16] MEDS: OLANZAPINE 10 MG VIAL IM SCH ×2 (08:16→17:00)
[2016-09-16] MEDS: METOPROLOL TARTRATE 25 MG TABLET PO SCH ×2 (08:16→17:00)
[2016-09-16] MEDS: LACTOBACILLUS RHAMNOSUS GG 1 EACH CAP.SPRINK PO SCH ×2 (08:16→17:00)
[2016-09-16] MEDS: PROSOURCE / PROSTAT (PYXIS) 30 ML UDC PO SCH ×2 (08:17→17:00)
[2016-09-16] MEDS: MULTIVITAMINS W-MINERALS 1 TAB TABLET PO SCH (08:17)
[2016-09-16] MEDS: ACETAMINOPHEN 325 MG TABLET PO SCH (08:17)
[2016-09-16] MEDS: CYANOCOBALAMIN 500 MCG TABLET PO SCH (08:17)
[2016-09-16] MEDS: ZINC SULFATE 220 MG CAPSULE PO SCH (08:17)
--- NOTE | 2016-09-16 09:00 | NUR ---
GPS RN: PATIENT IS SELECTIVE WITH MEDS, TOOK SEROQUEL, DID NOT ADMINISTER ZYPREXA IM.
--- NOTE | 2016-09-16 14:02 | NUR ---
GPS RN NOTE: DRESSING CHANGE PER ORDER PT TOLERATED WELL CONTINUE MONITORING
[2016-09-16 16:00] VITALS: BP 112/66
[2016-09-16 20:23] VITALS: BP 117/71
[2016-09-16] MEDS: MIRTAZAPINE 15 MG TABLET PO SCH (22:00)
--- NOTE | 2016-09-16 22:04 | NUR ---
GPS RN NOTE: PATIENT REFUSED REMERON 15MG, OFFERED X3 ATTEMPT, EXPLAINED THE RISK AND BENEFITS, PATIENT STILL REFUSED, PATIENT ALSO REFUSED BODY SKIN ASSESSMENT AND PICTURE TAKING WITNESSED BY SYLVIA FRANKS. WILL ENDORSED TO THE NEXT SHIFT.
[2016-09-17 08:37] VITALS: BP 166/73
[2016-09-17] MEDS: ACETAMINOPHEN 325 MG TABLET PO SCH (09:00)
[2016-09-17] MEDS: QUETIAPINE FUMARATE 25 MG TABLET PO SCH ×2 (09:00→18:06)
[2016-09-17] MEDS: MULTIVITAMINS W-MINERALS 1 TAB TABLET PO SCH (09:00)
[2016-09-17] MEDS: LACTOBACILLUS RHAMNOSUS GG 1 EACH CAP.SPRINK PO SCH ×2 (09:00→17:00)
[2016-09-17] MEDS: METOPROLOL TARTRATE 25 MG TABLET PO SCH ×2 (09:00→17:00)
[2016-09-17] MEDS: CYANOCOBALAMIN 500 MCG TABLET PO SCH (09:00)
[2016-09-17] MEDS: ZINC SULFATE 220 MG CAPSULE PO SCH (09:00)
[2016-09-17] MEDS: PROSOURCE / PROSTAT (PYXIS) 30 ML UDC PO SCH ×2 (09:00→17:00)
--- NOTE | 2016-09-17 10:36 | NUR ---
RN-CO: PER PUBLIC RELATIONS REPRESENTATIVE STORM, THERE IS NO PLACEMENT YET . CANCEL DISCHARGE, DR GRANT NOTIFIED.
[2016-09-17] MEDS: OLANZAPINE 10 MG VIAL IM SCH ×2 (10:40→17:00)
--- NOTE | 2016-09-17 10:51 | NUR ---
PT SAID SHE ONLY WANTED HER BLOOD PRESSURE MEDS THEN REFUSED AFTER SCAN AND OPENING UP PILL, THEN SHE RECEIVED IM ZYPREXIA 2.5 MG
--- NOTE | 2016-09-17 11:40 | NUR ---
UR update: JARED left a voicemail with updated clinicals for Love from [facility] [phone] EXT. [phone] AUTH # [id number] Will follow up
--- NOTE | 2016-09-17 13:41 | NUR ---
UR update: JARED received a voicemail from Love from [employer] [phone] [facility] [address] and we are authorized from 09/17/16 to 09/18/16. AUTH # [id number]
[2016-09-17 16:00] VITALS: BP 103/61
--- NOTE | 2016-09-17 18:11 | NUR ---
patient took seroquel po and im not needed at this time
[2016-09-17 19:52] VITALS: BP 100/47
[2016-09-17] MEDS: MIRTAZAPINE 15 MG TABLET PO SCH (22:00)
[2016-09-18 08:00] VITALS: BP 143/80
[2016-09-18] MEDS: LACTOBACILLUS RHAMNOSUS GG 1 EACH CAP.SPRINK PO SCH ×2 (08:58→17:00)
[2016-09-18] MEDS: METOPROLOL TARTRATE 25 MG TABLET PO SCH ×2 (08:59→17:00)
[2016-09-18] MEDS: MULTIVITAMINS W-MINERALS 1 TAB TABLET PO SCH (08:59)
[2016-09-18] MEDS: QUETIAPINE FUMARATE 25 MG TABLET PO SCH ×2 (09:00→17:45)
[2016-09-18] MEDS: CYANOCOBALAMIN 500 MCG TABLET PO SCH (09:00)
[2016-09-18] MEDS: ZINC SULFATE 220 MG CAPSULE PO SCH (09:00)
[2016-09-18] MEDS: OLANZAPINE 10 MG VIAL IM SCH ×2 (09:00→17:00)
[2016-09-18] MEDS: ACETAMINOPHEN 325 MG TABLET PO SCH ×2 (09:00→14:11)
[2016-09-18] MEDS: PROSOURCE / PROSTAT (PYXIS) 30 ML UDC PO SCH ×2 (09:00→17:00)
--- NOTE | 2016-09-18 09:09 | NUR ---
[id number]: NO NEED TO GIVE ZYPREXA IM 2.5 MG DUE TO TAKING SEROQUEL 25 MG PO.
[2016-09-18] MEDS: ACETAMINOPHEN 325 MG TABLET PO PRN (14:29)
--- NOTE | 2016-09-18 14:29 | NUR ---
[id number]: GAVE TYLENOL 650 MG PO DUE TO 5/10 HEADACHE UPON PT REQUEST AND WILL CONTINUE TO MONITOR FOR EFFECTIVENESS OF MEDICATION.
--- NOTE | 2016-09-18 15:19 | NUR ---
UR update: SW left a voicemail with clinical updates and received a voicemail from Love from [employer] [phone] ext [phone] authorizing pt from 09/18/16 to 09/19/16. AUTH # [id number]
--- NOTE | 2016-09-18 15:21 | NUR ---
CHANDLER from [facility] [address] [place] [address] is working on getting authorization from the insurance company so pt. can be transferred.
[2016-09-18 16:00] VITALS: BP 112/57
[2016-09-18 17:00] VITALS: BP 112/57
--- NOTE | 2016-09-18 17:49 | NUR ---
[id number]: NO NEED TO GIVE ZYPREXA IM 2.5 MG DUE TO TAKING SEROQUEL 25 MG PO.
--- NOTE | 2016-09-18 19:20 | NUR ---
[id number]: PT IS 81 YEARS OLD FEMALE DISCHARGE TO [facility] AT [address] [facility]. [address], [facility]IA [facility] IN STABLE CONDITION. COMPLIANT WITH MEDICATIONS, COOPERATIVE WITH TREATMENT PLANS. PT DENIES SI/HI/AVH. BEHAVIOR IMPROVED, PSYCHIATRIC TX PLANA MET, MEDICAL TX PLANS DEFERRED FOR CONTINUAL MONITORING. EDUCATED PT ABOUT AFTER CARE PLAN AND COPY PROVIDED. RETURNED PERSONAL BELONGINGS TO PT. MEDICATIONS RECONCILED WITH DR. VANESA OLIVER AND DR. GRANT. REPORT GIVEN AURA AT [facility] FOR CONTINUITY OF CARE. PT REFUSED TO SIGN DISCHARGE PAPERWORK. SKIN ASSESSMENT DONE. PT LEFT THE UNIT ACCOMPANIED BY STAFF VIA AMBULANCE.
--- NOTE | 2016-09-19 11:57 | NUR ---
Discharge note: pt. was discharged to [facility] [id number] [place] [address] via [facility]. Pt. was calm and cooperative, agreeable with discharge plan and denied having suicidal/homicidal ideations. Attending RN gave report to the accepting facility and discharge instructions were provided to the patient. Discharge papers have been signed.
--- NOTE | 2016-09-19 12:03 | NUR ---
UR update: JARED left a voicemail with discharge information for Love from [facility] [phone] ext [phone] AUTH # [id number]
== END 2016-09-18 19:20 | DRG 885 ==
LOC: ER 22:14 → GPS 09-08 12:10
PROVIDERS: ADMIT Internal Medicine; ATTEND Psychiatry & Neurology Psychiatry
DX: F33.3 Major depressive disorder, recurrent, severe with psychotic symptoms (principal); I11.0 Hypertensive heart disease with heart failure; G93.40 Encephalopathy, unspecified; I50.32 Chronic diastolic (congestive) heart failure; L03.115 Cellulitis of right lower limb; L03.116 Cellulitis of left lower limb; D68.59 Other primary thrombophilia; L97.819 Non-pressure chronic ulcer of other part of right lower leg with unspecified severity; L97.829 Non-pressure chronic ulcer of other part of left lower leg with unspecified severity; I83.218 Varicose veins of right lower extremity with both ulcer of other part of lower extremity and inflammation; I83.228 Varicose veins of left lower extremity with both ulcer of other part of lower extremity and inflammation; F29 Unspecified psychosis not due to a substance or known physiological condition; F03.90 Unspecified dementia, unspecified severity, without behavioral disturbance, psychotic disturbance, mood disturbance, and anxiety; I48.91 Unspecified atrial fibrillation; E78.5 Hyperlipidemia, unspecified; I10 Essential (primary) hypertension; I25.10 Atherosclerotic heart disease of native coronary artery without angina pectoris; D63.8 Anemia in other chronic diseases classified elsewhere; J44.9 Chronic obstructive pulmonary disease, unspecified; K21.9 Gastro-esophageal reflux disease without esophagitis; Z87.440 Personal history of urinary (tract) infections; Z73.6 Limitation of activities due to disability; I35.0 Nonrheumatic aortic (valve) stenosis; L98.9 Disorder of the skin and subcutaneous tissue, unspecified
CPT/HCPCS: 97001-TC; A6402; A6403; J3490; Z7502; Z7610